=== PATIENT | female | born 1975 | race Caucasian/White ===

== ENCOUNTER 2017-01-29 17:19 | Emergency (ER) | payer OTHER ==
[2017-01-29] MEDS ORDERED: NS 0.9% 1000 ML* 1,000 ML IV ONE (18:35)
[2017-01-29] MEDS ORDERED: diPHENhydraMINE IV* 50 MG/ML 1 ml VIAL (BENADRYL) IV ONE (18:43)
[2017-01-29] MEDS ORDERED: PROCHLORPERAZINE INJ 5 MG/ML 2 ML VIAL IV ONE (18:44)
[2017-01-29 18:55] LABS: Hematocrit 32 % (35-47); Hemoglobin 9.6 g/dl (12.0-16.0); Mean Corpuscular HGB Conc 30 g/dl (31-36); Mean Corpuscular Hemoglobin 22 pg (27-31); Mean Platelet Volume 8 um3 (7.4-10.4); Red Blood Count 4.34 10^6/ul (4.0-5.4); Red Cell Distribution Width 18 % (10.5-15); White Blood Count 8.9 10^3/ul (3.5-10.8)
[2017-01-29 19:00] LABS: Comments Flag Yes; Mean Corpuscular Volume 73 fL (80-97)
[2017-01-29 19:13] LABS: ALT 14 U/L (7-52); AST 14 U/L (13-39); Albumin 3.6 g/dL (3.2-5.2); Alkaline Phosphatase 158 U/L (34-104); Anion Gap 5 mmol/L (2-11); BUN/Creatinine Ratio 13.7 (8-20); Blood Urea Nitrogen 13 mg/dL (6-24); CO2 Carbon Dioxide 25 mmol/L (22-32); Calcium 8.8 mg/dL (8.6-10.3); Chloride 108 mmol/L (101-111); EGFR African American 83.4 (>60); EGFR Non-African American 64.8 (>60); Globulin 3.8 g/dL (2-4); Glucose 140 mg/dL (70-100); Potassium 4.1 mmol/L (3.5-5.0); Sodium 138 mmol/L (133-145); Total Protein 7.4 g/dL (6.4-8.9)
--- NOTE | 2017-01-29 20:03 | ED ---
Headache - HPI Summary HPI Summary: 41F presents with migraine since Tuesday. She used imitrex but it hasn't been working. Her neurologist is Dr Mock. She is very limited in medication and potential use as is allergic to many medication and is unable to take NSAIDS due to gastric bypass. She states there is nothing different about this migraine. She states it started behind her eyes and moved to the back of her head. She admits to photophobia. she states she is also on Keflex currently and is being treated for sinusitis. - History Of Current Complaint Chief Complaint: EDHeadache Stated Complaint: HEADACHE Time Seen by Provider: 01/29/17 18:35 - Allergies/Home Medications Allergies/Adverse Reactions: Allergies Allergy/AdvReac Type Severity Reaction Status Date / Time Adhesive Tape Allergy SKIN TEARS Verified 12/08/15 12:13 & RASH Hydromorphone [From Dilaudid] Allergy Anaphylatic Verified 12/08/15 12:13 Shock Lisinopril Allergy SENSITIVITY Verified 12/08/15 12:13 - PRESISTANT COUGHING Metoclopramide [From Reglan] Allergy Anxiety Verified 12/08/15 12:13 Morphine Allergy Pain Verified 12/08/15 12:13 PMH/Surg Hx/FS Hx/Imm Hx Endocrine/Hematology History: Reports: Hx Diabetes Cardiovascular History: Reports: Hx Hypertension - takes lisinopril Denies: Hx Congestive Heart Failure, Hx Pacemaker/ICD Respiratory History: Denies: Hx Asthma History: Reports: Hx Renal Disease - chronic renal insuffiency Sensory History: Denies: Hx Hearing Aid Psychiatric History: Reports: Hx Panic Disorder - treated with medication for anxiety - Cancer History Hx Chemotherapy: No Hx Radiation Therapy: No - Surgical History Surgery Procedure, Year, and Place: 1997 D&C, 1997 lanced bartholin gland cyst, 2007 gastric bypass surgery, 2008 cholecystectomy, 2013 R hernias repair, 2013 angiogram, no blockages found. Infectious Disease History: No Infectious Disease History: Denies: Traveled Outside the [place] in Last 30 Days - Family History Known Family History: Positive: Hypertension - Social History Alcohol Use: Rare Substance Use Type: Reports: None Smoking Status (MU): Former Smoker Review of Systems Negative: Fever Positive: Photophobia Negative: Chest Pain Negative: Shortness Of Breath Positive: Headache All Other Systems Reviewed And Are Negative: Yes Physical Exam Triage Information Reviewed: Yes Vital Signs On Initial Exam: Initial Vitals Temp Pulse Resp BP Pulse Ox 97.7 F 80 16 147/89 99 01/29/17 17:22 01/29/17 17:22 01/29/17 17:22 01/29/17 17:22 01/29/17 17:22 Vital Signs Reviewed: Yes Appearance: Positive: Pain Distress Skin: Positive: Warm, Dry Head/Face: Positive: Normal Head/Face Inspection Eyes: Positive: Normal, EOMI, JUSTA, Conjunctiva Clear ENT: Positive: Normal ENT inspection, Pharynx normal, TMs normal Respiratory/Lung Sounds: Positive: Clear to Auscultation, Breath Sounds Present Cardiovascular: Positive: Normal, RRR Neurological: Positive: Sensory/Motor Intact, Alert, Oriented to Person Place, Time, CN Intact II-III - [place] Coma Scale Coma Scale Total: 15 Diagnostics - Vital Signs Vital Signs Temp Pulse Resp BP Pulse Ox 01/29/17 19:30 66 119/67 97 01/29/17 19:00 73 134/79 99 01/29/17 18:30 66 135/76 97 01/29/17 18:00 65 121/73 98 01/29/17 17:38 74 98 01/29/17 17:35 149/82 01/29/17 17:22 97.7 F 80 16 147/89 99 - Laboratory Lab Results: Lab Results 01/29/17 01/29/17 Range/Units 18:49 18:49 WBC 8.9 (3.5-10.8) 10^3/ul RBC 4.34 (4.0-5.4) 10^6/ul Hgb 9.6 L (12.0-16.0) g/dl Hct 32 L (35-47) % MCV 73 L (80-97) fL MCH 22 L (27-31) pg MCHC 30 L (31-36) g/dl RDW 18 H (10.5-15) % Plt Count 270 (150-450) 10^3/ul MPV 8 (7.4-10.4) um3 Neut % (Auto) 61.1 (38-83) % Lymph % (Auto) 29.3 (25-47) % Warren % (Auto) 7.9 (1-9) % Eos % (Auto) 1.2 (0-6) % Baso % (Auto) 0.5 (0-2) % Absolute Neuts (auto) 5.4 (1.5-7.7) 10^3/ul Absolute Lymphs (auto) 2.6 (1.0-4.8) 10^3/ul Absolute Monos (auto) 0.7 (0-0.8) 10^3/ul Absolute Eos (auto) 0.1 (0-0.6) 10^3/ul Absolute Basos (auto) 0 (0-0.2) 10^3/ul Absolute Nucleated RBC 0 10^3/ul Nucleated RBC % 0 Sodium 138 (133-145) mmol/L Potassium 4.1 (3.5-5.0) mmol/L Chloride 108 (101-111) mmol/L Carbon Dioxide 25 (22-32) mmol/L Anion Gap 5 (2-11) mmol/L BUN 13 (6-24) mg/dL Creatinine 0.95 (0.51-0.95) mg/dL Est GFR ( Amer) 83.4 (>60) Est GFR (Non-Af Amer) 64.8 (>60) BUN/Creatinine Ratio 13.7 (8-20) Glucose 140 H (70-100) mg/dL Calcium 8.8 (8.6-10.3) mg/dL Total Bilirubin 0.20 (0.2-1.0) mg/dL AST 14 (13-39) U/L ALT 14 (7-52) U/L Alkaline Phosphatase 158 H (34-104) U/L Total Protein 7.4 (6.4-8.9) g/dL Albumin 3.6 (3.2-5.2) g/dL Globulin 3.8 (2-4) g/dL Albumin/Globulin Ratio 0.9 L (1-3) Beta HCG, Quant < 0.60 mIU/mL Result Diagrams: 01/29/17 18:49 01/29/17 18:49 Lab Statement: Any lab studies that have been ordered have been reviewed, and results considered in the medical decision making process. Re-Evaluation - Re-Evaluation First Eval Re-Evaluation Time: 20:03 Change: Improved Comment: patient states headache is mild, ready to go home Headache Course/Dx - Course Course Of Treatment: 41F presents with typical migraine, normal migraine mediaction is not working for here. is limited due to allergies and h/o bypass about what can take. normal neuro exam. gave bendaryl and compazine and iv fluids patient migraine resolved. told patient to follow up with dr mock. patient understands and agrees with plan - Diagnoses Differential Diagnosis/HQI/PQRI: Migraine, Sinus Headache, Tension Headache Provider Diagnoses: Migraine Discharge - Discharge Plan Condition: Guarded Disposition: HOME Patient Education Materials: Migraine Headache (ED) Referrals: Non Staff,Doctor [Primary Care Provider] - Jean Mock MD [Medical Doctor] - Additional Instructions: Drink fluids Try to avoid triggers Follow up with neurology Return to ED if develop any new or worsening symptoms
[2017-01-29 20:37] VITALS: BP 159/88
== END 2017-01-29 20:30 | disposition home or self-care (01) ==
LOC: ED 17:19
DX: G43.909 Migraine, unspecified, not intractable, without status migrainosus (principal); R51 Headache; H53.149 Visual discomfort, unspecified; Z87.891 Personal history of nicotine dependence
CPT/HCPCS: 36415; 80053; 84702; 85025; 96374; 96375; 99283; J0780; J1200

== ENCOUNTER 2017-05-02 15:53 | Emergency (ER) | payer OTHER ==
[2017-05-02] MEDS ORDERED: Ondansetron INJ* 2 MG/ML VIAL IV ONE (17:36)
[2017-05-02] MEDS ORDERED: Ketorolac INJ* 30 MG/ML 1 ML VIAL IV ONE (17:36)
[2017-05-02] MEDS ORDERED: diPHENhydraMINE IV* 50 MG/ML 1 ml VIAL (BENADRYL) IV ONE (17:36)
[2017-05-02] MEDS: NS 0.9% 1000 ML* 2,000 ML IV ONE (17:52)
--- NOTE | 2017-05-02 19:23 | ED ---
Perla Rodriguez Alok, scribed for Savanah Fernandez MD on 05/02/17 at 1727 . Headache - HPI Summary HPI Summary: 41F presents to the ED with a constant migraine HERNANDEZ for the past 2 weeks. Pt states that her HERNANDEZ is diffuse throughout her head and is accompanied by neck stiffness. Pt also notes nausea with vomiting earlier in the week. PMHx includes DM, PTSD, and anxiety. Pt also has h/o migraines and states that her current migraine feels typical. Pt is a former tobacco smoker and drinks ETOH occasionally. - History Of Current Complaint Chief Complaint: EDHeadache Stated Complaint: MIGRAINE/STIFF NECK Time Seen by Provider: 05/02/17 16:53 Hx Obtained From: Patient Onset/Duration: Started weeks ago, Still Present Initially Headache Was: Moderate Currently Pain Is: Moderate Timing: Constant Character: Migraine Location of Headache: Diffuse Radiates to: Neck Aggravating Factor: Nothing Allevating Factors: Nothing Associated Signs And Symptoms: Nausea, Vomiting, Neck Stiffness - Allergies/Home Medications Allergies/Adverse Reactions: Allergies Allergy/AdvReac Type Severity Reaction Status Date / Time Adhesive Tape Allergy SKIN TEARS Verified 05/02/17 16:54 & RASH Hydromorphone [From Dilaudid] Allergy Anaphylatic Verified 05/02/17 16:54 Shock Lisinopril Allergy SENSITIVITY Verified 05/02/17 16:54 - PRESISTANT COUGHING Loperamide [From Imodium] Allergy Unknown Verified 05/02/17 16:54 Reaction Details Metoclopramide [From Reglan] Allergy Anxiety Verified 05/02/17 16:54 Morphine Allergy Pain Verified 05/02/17 16:54 PMH/Surg Hx/FS Hx/Imm Hx Endocrine/Hematology History: Reports: Hx Diabetes Cardiovascular History: Reports: Hx Hypertension - takes lisinopril Denies: Hx Congestive Heart Failure, Hx Pacemaker/ICD Respiratory History: Denies: Hx Asthma History: Reports: Hx Renal Disease - chronic renal insuffiency Sensory History: Denies: Hx Hearing Aid Psychiatric History: Reports: Hx Panic Disorder - treated with medication for anxiety - Cancer History Hx Chemotherapy: No Hx Radiation Therapy: No - Surgical History Surgery Procedure, Year, and Place: 1997 D&C, 1997 lanced bartholin gland cyst, 2007 gastric bypass surgery, 2008 cholecystectomy, 2012 R hernias repair, 2012 angiogram, no blockages found. Infectious Disease History: No Infectious Disease History: Denies: Traveled Outside the [place] in Last 30 Days - Family History Known Family History: Positive: Hypertension - Social History Occupation: Unemployed Lives: Alone Alcohol Use: Rare Substance Use Type: Reports: None Smoking Status (MU): Former Smoker Review of Systems Negative: Fever Positive: Vomiting, Nausea Positive: Other - neck pain Positive: Headache All Other Systems Reviewed And Are Negative: Yes Physical Exam Triage Information Reviewed: Yes Vital Signs On Initial Exam: Initial Vitals Temp Pulse Resp BP 98.6 F 80 18 139/82 05/02/17 15:56 05/02/17 15:56 05/02/17 15:56 05/02/17 15:56 Vital Signs Reviewed: Yes Appearance: Positive: Well-Appearing, No Pain Distress Skin: Positive: Warm, Skin Color Reflects Adequate Perfusion, Dry Eyes: Positive: EOMI, JUSTA ENT: Positive: Pharynx normal, TMs normal Neck: Positive: Supple, Nontender Respiratory/Lung Sounds: Positive: Clear to Auscultation, Breath Sounds Present. Negative: Rales, Rhonchi, Wheezes Cardiovascular: Positive: RRR, Other - no gallop. Negative: Murmur, Rub Abdomen Description: Positive: Nontender, Soft, Other: - no rebound. Negative: Distended, Guarding Bowel Sounds: Positive: Present Musculoskeletal: Positive: Strength/ROM Intact. Negative: Edema Left, Edema Right Neurological: Positive: Sensory/Motor Intact, Alert, Oriented to Person Place, Time, CN Intact II-III Psychiatric: Positive: Affect/Mood Appropriate - [place] Coma Scale Coma Scale Total: 15 Diagnostics - Vital Signs Vital Signs Temp Pulse Resp BP Pulse Ox 05/02/17 17:10 69 99 05/02/17 16:55 98.6 F 74 16 126/82 99 05/02/17 15:56 98.6 F 80 18 139/82 - Laboratory Lab Statement: Any lab studies that have been ordered have been reviewed, and results considered in the medical decision making process. Headache Course/Dx - Course Course Of Treatment: pt feeling much better ok to go home - Diagnoses Provider Diagnoses: Migraine Discharge - Discharge Plan Condition: Stable Disposition: HOME Patient Education Materials: Migraine Headache (ED) Referrals: Dedrick KAYE,Luke Odell [Primary Care Provider] - The documentation as recorded by the Perla neri Alok accurately reflects the service I personally performed and the decisions made by me, Savanah Fernandez MD.
[2017-05-02 19:43] VITALS: BP 118/78
== END 2017-05-02 19:42 | disposition home or self-care (01) ==
LOC: ED 15:53
DX: G43.909 Migraine, unspecified, not intractable, without status migrainosus (principal); E11.9 Type 2 diabetes mellitus without complications; I10 Essential (primary) hypertension; F41.0 Panic disorder [episodic paroxysmal anxiety]; Z87.891 Personal history of nicotine dependence
CPT/HCPCS: 96360; 96374; 96375; 99283; J1200; J1885; J2405

== ENCOUNTER 2017-08-26 22:02 | Observation (INO) | payer OTHER ==
[2017-08-26] MEDS ORDERED: Aspirin Low Dose CHEW TAB* 81 MG PO ONE (22:41)
[2017-08-26 23:39] LABS: Hematocrit 29 % (35-47); Hemoglobin 9.1 g/dl (12.0-16.0); Mean Corpuscular HGB Conc 31 g/dl (31-36); Mean Corpuscular Hemoglobin 24 pg (27-31); Mean Corpuscular Volume 75 fL (80-97); Mean Platelet Volume 9 um3 (7.4-10.4); Red Blood Count 3.88 10^6/ul (4.0-5.4); Red Cell Distribution Width 17 % (10.5-15); White Blood Count 9.3 10^3/ul (3.5-10.8)
[2017-08-26 23:49] LABS: ALT 10 U/L (7-52); AST 10 U/L (13-39); Albumin 3.5 g/dL (3.2-5.2); Alkaline Phosphatase 118 U/L (34-104); Anion Gap 5 mmol/L (2-11); BUN/Creatinine Ratio 17.6 (8-20); Blood Urea Nitrogen 16 mg/dL (6-24); CO2 Carbon Dioxide 21 mmol/L (22-32); Calcium 8.8 mg/dL (8.6-10.3); Chloride 109 mmol/L (101-111); EGFR African American 87.6 (>60); EGFR Non-African American 68.1 (>60); Globulin 3.5 g/dL (2-4); Glucose 288 mg/dL (70-100); Magnesium 1.9 mg/dL (1.9-2.7); Potassium 3.9 mmol/L (3.5-5.0); Sodium 135 mmol/L (133-145)
[2017-08-27] MEDS ORDERED: CMCS Melatonin (NF) 3 MG TAB PO PRN (01:32)
[2017-08-27] MEDS ORDERED: Albuterol 2.5 MG/3 ML NEB.SOL* (0.083%) INH PRN (01:32)
[2017-08-27] MEDS ORDERED: Ondansetron INJ* 2 MG/ML VIAL IV PRN (01:33)
[2017-08-27] MEDS ORDERED: Al Hydrox/Mg Hydrox/Simet LIQ* 30 ML UDC PO ONE (01:35)
[2017-08-27] MEDS ORDERED: Lidocaine 2% VISCOUS* 15 ML UDC PO ONE (01:35)
[2017-08-27] MEDS ORDERED: Ibuprofen TAB* 400 MG PO PRN (01:35)
--- NOTE | 2017-08-27 03:16 | ED ---
Brigette Rodriguez Abhishek, scribed for Reed Garg on 08/26/17 at 2342 . HPI Chest Pain - HPI Summary HPI Summary: This patient is a 41 year old F presenting to [facility] with a chief complaint of chest pain since 829. The CC is described as located on the center of the chest and radiating onto the left arm. The patient rates the pain 9/10 in severity. Symptoms aggravated by nothing. Symptoms alleviated by nothing. Patient reports nausea. Patient denies vomiting, adb pain, and SOB. PMHx includes Hypothyroidism, low Hb, DM, and hernia. - History of Current Complaint Chief Complaint: EDChestPainROMI Time Seen by Provider: 08/26/17 22:33 Hx Obtained From: Patient Onset/Duration: Started Hours Ago - since 829 Timing: Constant Initial Severity: Severe Current Severity: Severe Pain Intensity: 9 Pain Scale Used: 0-10 Numeric Chest Pain Location: Discrete at: - center of the chest Chest Pain Radiates: Yes Chest Pain Radiates To:: Arm - left arm Aggravating Factor(s): Nothing Alleviating Factor(s): Nothing Associated Signs and Symptoms: Positive: Nausea. Negative: Shortness of Breath , Abdominal Pain, Vomiting - Allergy/Home Medications Allergies/Adverse Reactions: Allergies Allergy/AdvReac Type Severity Reaction Status Date / Time Hydromorphone [From Dilaudid] Allergy Severe Anaphylatic Verified 08/27/17 01:34 Shock Adhesive Tape Allergy Mild SKIN TEARS Verified 08/27/17 01:34 & RASH Loperamide [From Imodium] Allergy Unknown Verified 08/26/17 23:05 Reaction Details Lisinopril AdvReac Mild SENSITIVITY Verified 08/27/17 01:34 - PRESISTANT COUGHING Metoclopramide [From Reglan] AdvReac Mild Anxiety Verified 08/27/17 01:34 Morphine AdvReac Pain Verified 08/27/17 01:34 Home Medications: Home Medications Unobtainable [Unobtainable] 08/27/17 [History Confirmed 08/27/17] PMH/Surg Hx/FS Hx/Imm Hx Endocrine/Hematology History: Reports: Hx Diabetes, Hx Thyroid Disease - hypothyrodism Cardiovascular History: Reports: Hx Hypertension - takes lisinopril, Other Cardiovascular Problems/Disorders - low Hb Denies: Hx Congestive Heart Failure, Hx Pacemaker/ICD Respiratory History: Denies: Hx Asthma GI History: Reports: Other GI Disorders - Hernia History: Reports: Hx Renal Disease - chronic renal insuffiency Sensory History: Denies: Hx Hearing Aid Psychiatric History: Reports: Hx Panic Disorder - treated with medication for anxiety - Cancer History Hx Chemotherapy: No Hx Radiation Therapy: No - Surgical History Surgery Procedure, Year, and Place: 1997 D&C, 1997 lanced bartholin gland cyst, 2007 gastric bypass surgery, 2008 cholecystectomy, 2012 R hernias repair, 2012 angiogram, no blockages found. Infectious Disease History: No Infectious Disease History: Denies: Traveled Outside the [place] in Last 30 Days - Family History Known Family History: Positive: Hypertension, Other - [place] - Social History Alcohol Use: Rare Substance Use Type: Reports: None Smoking Status (MU): Former Smoker Review of Systems Constitutional: Negative Eyes: Negative ENT: Negative Positive: Chest Pain Negative: Shortness Of Breath Positive: Nausea. Negative: Abdominal Pain, Vomiting Genitourinary: Negative Positive: Other - Chest pain radiating onto the left arm Skin: Negative Neurological: Negative Psychological: Normal All Other Systems Reviewed And Are Negative: Yes Physical Exam - Summary Physical Exam Summary: Appearance: Well appearing, no pain distress Skin: warm, dry, reflects adequate perfusion Head/face: normal Eyes: EOMI, JUSTA ENT: normal Neck: supple, nontender Respiratory: CTA, breath sounds present Cardiovascular: RRR, pulses symmetrical Abdomen: nontender, soft Bowel: present Musculoskeletal: normal, strength/ROM intact Neuro: normal, sensory motor intact, A&Ox3 General: Obese Triage Information Reviewed: Yes Vital Signs On Initial Exam: Initial Vitals Temp Pulse Resp BP Pulse Ox 97.4 F 94 20 143/98 99 08/26/17 22:09 08/26/17 22:09 08/26/17 22:09 08/26/17 22:09 08/26/17 22:09 Vital Signs Reviewed: Yes - [place] Coma Scale Coma Scale Total: 15 Diagnostics - Vital Signs Vital Signs Temp Pulse Resp BP Pulse Ox 08/26/17 22:09 97.4 F 94 20 143/98 99 - Laboratory Lab Results: Lab Results 08/26/17 Range/Units 22:56 B-Natriuretic Peptide 20 ( - 100) pg/mL Result Diagrams: 08/26/17 22:56 08/26/17 22:56 Lab Statement: Any lab studies that have been ordered have been reviewed, and results considered in the medical decision making process. - Radiology Chest X-ray Radiology Interpretation Completed By: Radiologist - CXR is negative. ED physician has reviewed this radiology report and agrees. - EKG 8940 EKG Interpretation: Normal sinus rhythm, no aucte changes Chest Pain Course/Dx - Course Course Of Treatment: This patient is a 41 year old F presenting to [facility] with a chief complaint of chest pain since 829. The CC is described as located on the center of the chest and radiating onto the left arm. Patient reports nausea. Patient denies vomiting, adb pain, and SOB. An EKG reveals normal sinus rhythm, no acute changes. CXR is negative. We discussed patient care with Dr. Mcgee and he recommended admitting the pt as an inpatient. Pt will be Dx with CP r/o IL and with Hx of DM. Pt is agreeable with this plan. - Chest Pain Differential Diagnosis/HQI/PQRI: Acute [place], ACS, Angina, CHF, GI Disease, Lower Respiratory Infection - Diagnoses Provider Diagnoses: Chest pain, rule out acute myocardial infarction, Diabetes - Provider Notifications Discussed Care Of Patient With: Rustam Mcgee Instructed by Provider To: Admit As Inpatient Discharge - Discharge Plan Condition: Stable Disposition: ADMITTED TO [facility] The documentation as recorded by the Brigette neri Abhishek accurately reflects the service I personally performed and the decisions made by Forest doss Emmanuel.
[2017-08-27] MEDS: Acetaminophen TAB* 325 MG PO PRN (04:44)
[2017-08-27] MEDS ORDERED: Omeprazole CAP* 20 MG PO SCH ×2 (06:00→11:00)
[2017-08-27] MEDS ORDERED: Albuterol HFA INHALER* 8 gm MDI INH PRN (06:11)
--- NOTE | 2017-08-27 06:32 | HP ---
H&P (Free Text) History and Physical: PCP: Aiyana Tse MD Date/Time: 08/27/2017 0130 CC: chest pain HPI: Ms Johnson is a 41YO morbidly obese female who went to bed early last night to awaken around 2029 due to stabbing continuous substernal chest pain radiating to the L arm. She immediately informs me that "July is always a stressful month. My dad of a massive heart attack in July five years ago." She reports mild nausea & light-headedness, but no emesis, SOB, palpitations, sweats, cough, congestion, F/C, or other issues. She took OTC Tums without relief and decided to present for evaluation. A GI cocktail given in ED did not seem to help. PMedHx asthma DM2, insulin requiring hypothyroidism anemia PTSD panic disorder anxiety HTN migraines Ambulatory Orders Acetaminophen [Tylenol 8 Hour Arthritis] 650 mg PO Q4H PRN 08/27/17 Albuterol HFA INHALER* [Ventolin HFA Inhaler*] 2 puff INH Q4H PRN 08/27/17 Artificial Tear Solution [Genteal Tears Moderate 0.1-0.3 %] 1 drop TOPICAL BID PRN 08/27/17 Ascorbic Acid TAB* [Vitamin C TAB*] 500 mg PO DAILY 08/27/17 BuPROPion XL* [Bupropion XL*] 300 mg PO DAILY 08/27/17 Cetirizine* [ZyrTEC 10 MG TAB*] 10 mg PO DAILY 08/27/17 Cholecalciferol [Vitamin D3] 2,000 unit PO DAILY 08/27/[address] TAB(*) [Depakote DR TAB(*)] 125 mg PO BID 08/27/17 Ferrous Sulfate [Iron (Ferrous Sulfate)] 150 mg PO DAILY 08/27/17 Fluticasone HFA 110 mcg(NF) [Flovent HFA 110 mcg(NF)] 2 puff INH BID 08/27/17 Folic Acid TAB* [Folvite TAB*] 1 mg PO DAILY 08/27/17 Insulin GLARGINE(*) [Lantus(*)] 30 units SUBCON BID 08/27/17 Insulin REGULAR(*) 0 units SUBCUT ACHS 08/27/17 Levothyroxine TAB* [Synthroid TAB*] 25 mcg PO 0800 08/27/17 Lurasidone(*) [Latuda] 80 mg PO QPM 08/27/17 Meclizine TAB* [Antivert 12.5 TAB*] 25 mg PO TID PRN 08/27/17 Mirtazapine TAB* [Remeron TAB*] 30 mg PO BEDTIME 08/27/17 Montelukast Sodium TAB* [Singulair TAB*] 10 mg PO DAILY 08/27/17 Multiple Vitamins W/ Minerals [Multiple Vitamin/Minerals] 2 tab PO DAILY Norethindrone (NF) [Shweta (NF)] 0.35 mg PO BEDTIME 08/27/17 SUMAtriptan TAB* [Imitrex TAB*] 50 mg PO SEE INSTRUCTIONS 08/27/17 Topiramate [Topamax 100 mg tab] 100 mg PO SEE INSTRUCTIONS PRN 08/27/17 ValACYclovir (*) [Valtrex 500 mg (*)] 500 mg PO BID PRN 08/27/17 Vitamin B Complex CAP* [B Complex CAP*] 1 cap PO DAILY 08/27/17 clonazePAM TAB(*) [Klonopin TAB(*)] 1 mg PO BID PRN 08/27/17 diPHENhydraMINE PO* [Benadryl PO 50 MG CAP*] 50 mg PO BEDTIME PRN 08/27/17 Allergies Hydromorphone [From Dilaudid] Allergy (Severe, Verified 08/27/17 01:34) Anaphylatic Shock Adhesive Tape Allergy (Mild, Verified 08/27/17 01:34) SKIN TEARS & RASH Loperamide [From Imodium] Allergy (Verified 08/26/17 23:05) Unknown Reaction Details Lisinopril Adverse Reaction (Mild, Verified 08/27/17 01:34) SENSITIVITY - PRESISTANT COUGHING Metoclopramide [From Reglan] Adverse Reaction (Mild, Verified 08/27/17 01:34) Anxiety Morphine Adverse Reaction (Verified 08/27/17 01:34) Pain PSurgHx hiatal hernia repair gastric bypass cholecystectomy D&C SocHx: quit smoking in 2007, rare alcohol, denies recreational drugs; single, lives alone; unemployed, has filed for disability; full code status FamHx: Mother: alive at 67 with hypothyroidism; Father: passed at 59 of CAD/[place]; Sister: alive with Raynaud's disease ROS: as above, otherwise reviewed and all were negative vitals: Vital Signs Temp 36.8 C 08/27/17 01:50 Pulse 89 08/27/17 01:50 Resp 18 08/27/17 01:50 BP 149/95 08/27/17 01:50 Pulse Ox 100 08/27/17 01:50 Intake & Output 08/26/17 08/26/17 08/27/17 11:59 23:59 11:59 Intake Total 440 Output Total 0 Balance 440 Weight 122.47 kg 121.381 kg Intake: Oral 440 Output: Urine 0 Other: # Bowel Movements 0 Constitutional: NAD, normally developed, morbidly obese white female HEENM: atraumatic; sclera/conjunctiva: non-icteric/clear; hearing: clinically intact; oropharynx: clear, mucosa moist Neck: soft tissue: non-tender; thyroid: normal Pulmonary: clear to auscultation bilaterally, good aeration, no accessory muscle use CV: RR/RR, normal S1S2, no carotid bruit, no jugular venous distention, 1+ B DP/ PT, no edema Abdominal: soft, non-distended, non-tender, no rebound/guarding/rigidity, normoactive bowel sounds, no hepatosplenomegaly or masses, no costovertebral angle tenderness Musculoskeletal: general: grossly intact, no palpable tenderness Integumental: normal appearance and texture of exposed skin Psychiatric orientation: AA&O to PPS affect: flat mood: cooperative eye contact: fair to poor content: reliable responses: mildly slowed insight: fair to poor Testing: Lab Results 08/26/17 08/26/17 08/26/17 Range/Units 22:56 22:56 22:56 WBC 9.3 (3.5-10.8) 10^3/ul RBC 3.88 L (4.0-5.4) 10^6/ul Hgb 9.1 L (12.0-16.0) g/dl Hct 29 L (35-47) % MCV 75 L (80-97) fL MCH 24 L (27-31) pg MCHC 31 (31-36) g/dl RDW 17 H (10.5-15) % Plt Count 237 (150-450) 10^3/ul MPV 9 (7.4-10.4) um3 Neut % (Auto) 58.3 (38-83) % Lymph % (Auto) 30.9 (25-47) % [place] % (Auto) 8.8 (1-9) % Eos % (Auto) 1.5 (0-6) % Baso % (Auto) 0.5 (0-2) % Absolute Neuts (auto) 5.4 (1.5-7.7) 10^3/ul Absolute Lymphs (auto) 2.9 (1.0-4.8) 10^3/ul Absolute Monos (auto) 0.8 (0-0.8) 10^3/ul Absolute Eos (auto) 0.1 (0-0.6) 10^3/ul Absolute Basos (auto) 0 (0-0.2) 10^3/ul Absolute Nucleated RBC 0 10^3/ul Nucleated RBC % 0 INR (Anticoag Therapy) (0.89-1.11) APTT (26.0-36.3) seconds D-Dimer, Quantitative (Less Than 230) ng/mL Sodium 135 (133-145) mmol/L Potassium 3.9 (3.5-5.0) mmol/L Chloride 109 (101-111) mmol/L Carbon Dioxide 21 L (22-32) mmol/L Anion Gap 5 (2-11) mmol/L BUN 16 (6-24) mg/dL Creatinine 0.91 (0.51-0.95) mg/dL Est GFR ( Amer) 87.6 (>60) Est GFR (Non-Af Amer) 68.1 (>60) BUN/Creatinine Ratio 17.6 (8-20) Glucose 288 H (70-100) mg/dL Lactic Acid (0.5-2.0) mmol/L Calcium 8.8 (8.6-10.3) mg/dL Magnesium 1.9 (1.9-2.7) mg/dL Total Bilirubin 0.20 (0.2-1.0) mg/dL AST 10 L (13-39) U/L ALT 10 (7-52) U/L Alkaline Phosphatase 118 H (34-104) U/L Troponin I 0.00 (<0.04) ng/mL B-Natriuretic Peptide 20 ( - 100) pg/mL Total Protein 7.0 (6.4-8.9) g/dL Albumin 3.5 (3.2-5.2) g/dL Globulin 3.5 (2-4) g/dL Albumin/Globulin Ratio 1.0 (1-3) 08/26/17 08/26/17 08/27/17 Range/Units 22:56 22:56 05:02 WBC (3.5-10.8) 10^3/ul RBC (4.0-5.4) 10^6/ul Hgb (12.0-16.0) g/dl Hct (35-47) % MCV (80-97) fL MCH (27-31) pg MCHC (31-36) g/dl RDW (10.5-15) % Plt Count (150-450) 10^3/ul MPV (7.4-10.4) um3 Neut % (Auto) (38-83) % Lymph % (Auto) (25-47) % [place] % (Auto) (1-9) % Eos % (Auto) (0-6) % Baso % (Auto) (0-2) % Absolute Neuts (auto) (1.5-7.7) 10^3/ul Absolute Lymphs (auto) (1.0-4.8) 10^3/ul Absolute Monos (auto) (0-0.8) 10^3/ul Absolute Eos (auto) (0-0.6) 10^3/ul Absolute Basos (auto) (0-0.2) 10^3/ul Absolute Nucleated RBC 10^3/ul Nucleated RBC % INR (Anticoag Therapy) 0.86 L (0.89-1.11) APTT 27.0 (26.0-36.3) seconds D-Dimer, Quantitative 222 (Less Than 230) ng/mL Sodium (133-145) mmol/L Potassium (3.5-5.0) mmol/L Chloride (101-111) mmol/L Carbon Dioxide (22-32) mmol/L Anion Gap (2-11) mmol/L BUN (6-24) mg/dL Creatinine (0.51-0.95) mg/dL Est GFR ( Amer) (>60) Est GFR (Non-Af Amer) (>60) BUN/Creatinine Ratio (8-20) Glucose (70-100) mg/dL Lactic Acid 1.6 (0.5-2.0) mmol/L Calcium (8.6-10.3) mg/dL Magnesium (1.9-2.7) mg/dL Total Bilirubin (0.2-1.0) mg/dL AST (13-39) U/L ALT (7-52) U/L Alkaline Phosphatase (34-104) U/L Troponin I 0.00 (<0.04) ng/mL B-Natriuretic Peptide ( - 100) pg/mL Total Protein (6.4-8.9) g/dL Albumin (3.2-5.2) g/dL Globulin (2-4) g/dL Albumin/Globulin Ratio (1-3) ECG, personally reviewed: NSR rate 84, no ischemia, diffuse T-wave flattening & low voltage 2nd body habitus CXR, personally reviewed: no acute process, obscured R cardiac border stable compared to 2015 CTA chest Impression: 41F HX morbid obesity, DM2, & HTN presents with atypical chest pain for r/o ACS DIAGNOSIS & PLAN Primary atypical chest pain r/o ACS : telemetry : trend troponin : aspirin : supplemental oxygen : recheck ECG in AM : consider cardiology consult pending above results : supportive care Secondary asthma : review meds once reconciled DM2 : insulin carb ratio diet : A1c 10.9 07/2017 : basal/bolus/correctional insulin hypothyroidism : review meds once reconciled anemia : continue outpatient monitoring w/ PCP PTSD : review meds once reconciled panic disorder : review meds once reconciled anxiety : review meds once reconciled HTN : review meds once reconciled migraines : review meds once reconciled Admission Rational: CDU observation for r/o ACS DVTp: heparin SQ Code Status: full
[2017-08-27] MEDS: Levothyroxine TAB* 25 MCG TAB PO SCH (06:51)
--- NOTE | 2017-08-27 07:33 | RAD ---
HISTORY: Chest pain COMPARISONS: CT chest dated December 05, 2014 VIEWS: 1: frontal portable view of the chest at ] FINDINGS: LINES AND TUBES: None. CARDIOMEDIASTINAL SILHOUETTE: Again noted is a prominent pericardial fat pad along the right cardiophrenic angle. This is stable from the previous CT examination. The cardiomediastinal silhouette is otherwise normal for portable technique. PLEURA: The costophrenic angles are sharp. No pleural abnormalities are noted. LUNG PARENCHYMA: The lungs are clear. ABDOMEN: The upper abdomen is clear. There is no subphrenic gas. BONES AND SOFT TISSUES: No bone or soft tissue abnormalities are noted. IMPRESSION: NO ACTIVE CARDIOPULMONARY DISEASE.
[2017-08-27] MEDS: clonazePAM TAB(*) 0.5 MG PO PRN ×2 (07:54→22:30)
[2017-08-27] MEDS ORDERED: Insulin GLARGINE(*) 1 UNITS UNIT SUBCUT SCH (09:00)
[2017-08-27] MEDS: FERROUS SULFATE PO SCH (09:13)
[2017-08-27] MEDS: BuPROPion XL* 300 MG TAB.XL PO SCH (09:17)
[2017-08-27] MEDS: Folic Acid TAB* 1 MG PO SCH (09:17)
[2017-08-27] MEDS: Docusate CAP* 100 MG PO SCH ×2 (09:17→20:33)
[2017-08-27] MEDS: Montelukast Sodium TAB* 10 MG PO SCH (09:17)
[2017-08-27] MEDS: Divalproex DR TAB(*) 125 MG PO SCH ×2 (09:17→20:33)
[2017-08-27] MEDS: Topiramate TAB(*) 100 MG PO SCH (09:17)
--- NOTE | 2017-08-27 10:47 | PN ---
Subjective Date of Service: 08/27/17 Interval History: Midsternal chest pain has recurred, about 08/09. No SOB, diaphoresis, nausea. Objective Active Medications: Acetaminophen (Tylenol Tab*) 650 mg PO Q6H PRN PRN Reason: FEVER/PAIN Last Admin: 08/27/17 04:44 Dose: 650 mg Albuterol (Ventolin 2.5 Mg/3 Ml Neb.Eleni*) 2.5 mg INH Q2H PRN PRN Reason: SOB/WHEEZING Albuterol (Ventolin Hfa Inhaler*) 2 puff INH Q4H PRN PRN Reason: SOB/WHEEZING Aspirin (Aspirin Ec Low Dose*) 81 mg PO DAILY [facility] Bupropion HCl (Bupropion Xl*) 300 mg PO DAILY [facility] Last Admin: 08/27/17 09:17 Dose: 300 mg Clonazepam (Klonopin Tab(*)) 1 mg PO BID PRN PRN Reason: ANXIETY Last Admin: 08/27/17 07:54 Dose: 1 mg Divalproex Sodium (Depakote Dr Tab(*)) 125 mg PO BID [facility] Last Admin: 08/27/17 09:17 Dose: Not Given Docusate Sodium (Colace Cap*) 200 mg PO BID [facility] Last Admin: 08/27/17 09:17 Dose: 200 mg Folic Acid (Folvite Tab*) 1 mg PO DAILY [facility] Last Admin: 08/27/17 09:17 Dose: 1 mg Heparin Sodium (Porcine) (Heparin Vial(*)) 5,000 units SUBCUT Q8HR [facility] Iron Sucrose 200 mg/ Sodium (Chloride) 110 mls @ 110 mls/hr IVPB ONCE ONE Stop: 08/27/17 11:30 Ibuprofen (Motrin Tab*) 400 mg PO Q6H PRN PRN Reason: PAIN Last Admin: 08/27/17 05:49 Dose: 400 mg Insulin Glargine (Lantus(*)) 30 units SUBCUT BID [facility] Last Admin: 08/27/17 09:16 Dose: 30 units Levothyroxine Sodium (Synthroid Tab*) 25 mcg PO 0600 [facility] Last Admin: 08/27/17 06:51 Dose: 25 mcg Lurasidone HCl (Latuda) 80 mg PO QPM [facility] Melatonin (Melatonin (Nf)) 3 mg PO BEDTIME PRN; Protocol PRN Reason: Sleep Mirtazapine (Remeron Tab*) 30 mg PO BEDTIME [facility] Montelukast Sodium (Singulair Tab*) 10 mg PO DAILY [facility] Last Admin: 08/27/17 09:17 Dose: 10 mg Non-Formulary Medication (Ferrous Sulfate [Iron (Ferrous Sulfate)]) 150 mg PO DAILY [facility] Last Admin: 08/27/17 09:13 Dose: Not Given Norethindrone (Shweta (Nf)) 0.35 mg PO BEDTIME [facility] Omeprazole (Prilosec Cap*) 20 mg PO DAILY@0600 [facility] Last Admin: 08/27/17 05:49 Dose: 20 mg Omeprazole (Prilosec Cap*) 20 mg PO BID [facility] Ondansetron HCl (Zofran Inj*) 4 mg IV Q6H PRN PRN Reason: NAUSEA Last Admin: 08/27/17 07:54 Dose: 4 mg Topiramate (Topamax(*)) 100 mg PO QAM [facility] Last Admin: 08/27/17 09:17 Dose: 100 mg Topiramate (Topamax(*)) 150 mg PO BEDTIME [facility] Vital Signs 08/27/17 08/27/17 08/27/17 01:50 07:39 07:54 Temperature 98.2 F 97.6 F Pulse Rate 89 76 Respiratory 18 16 16 Rate Blood Pressure 149/95 125/65 (mmHg) O2 Sat by Pulse 100 100 Oximetry Oxygen Devices in Use Now: None Appearance: Alert, partly up in bed. In fair spirits. Looks comfortable. Eyes: No Scleral Icterus Neck: NL Appearance and Movements; NL JVP, No Thyroid Enlargement, Masses Respiratory: Symmetrical Chest Expansion and Respiratory Effort, Clear to Auscultation, Clear to Percussion Cardiovascular: NL Sounds; No Murmurs; No JVD, RRR, No Edema, - - No sternal tenderness Abdominal: NL Sounds; No Tenderness; No Distention, No Hepatosplenomegaly, - Extremities: No Edema, No Clubbing, Cyanosis, - Skin: No Rash or Ulcers, No Nodules or Sclerosis, - Neurological: Alert and Oriented x 3, NL Sensation Result Diagrams: 08/26/17 22:56 08/26/17 22:56 Additional Lab and Data: Lab Results 08/26/17 Range/Units 22:56 B-Natriuretic Peptide 20 ( - 100) pg/mL Assess/Plan/Problems-Billing Assessment: - Patient Problems (1) Chest pain Current Visit: Yes Status: Acute Code(s): R07.9 - CHEST PAIN, UNSPECIFIED SNOMED Code(s): 64565603 Comment: Suspect GI cause. Start IV pantoprazole q 12 hr x 2 doses 08/26, then po omeprazole bid. (2) Diabetes Current Visit: Yes Status: Acute Code(s): E11.9 - TYPE 2 DIABETES MELLITUS WITHOUT COMPLICATIONS SNOMED Code(s): 04204502 Comment: Reduce Lantus to 20 U bid, glu 75 and likely eating less here. Lispro by SS. (3) Morbid obesity Current Visit: Yes Status: Acute Code(s): E66.01 - MORBID (SEVERE) OBESITY DUE TO EXCESS CALORIES SNOMED Code(s): 245242223 Comment: BMI 48.9 (4) Anemia Current Visit: Yes Status: Acute Code(s): D64.9 - ANEMIA, UNSPECIFIED SNOMED Code(s): 041004819 Comment: Likely iron deficiency. IV iron ordered, likely absorbs po poorly due to bariatric surgery. No menses since her surgery 8 yrs ago. Add on tests : iron, TIBC, ferritin 08/27. (5) Psychiatric diagnosis Current Visit: Yes Status: Acute Code(s): F99 - MENTAL DISORDER, NOT OTHERWISE SPECIFIED SNOMED Code(s): 36923288 Comment: Continue her home psychotropic meds.
[2017-08-27] MEDS ORDERED: Dextrose 50% Syringe 50 ML* 25 GM/50 ML SYRINGE IV PUSH PRN (10:50)
[2017-08-27] MEDS ORDERED: Pantoprazole IV* 40 MG IV SCH (11:00)
[2017-08-27 11:11] LABS: Iron 16 ug/dL (50-212); Total Iron Binding Capacity 461 mcg/dL (250-450); Transferrin 329 mg/dL (203-362)
[2017-08-27 11:31] LABS: Ferritin < 10.0 ng/mL (11-307)
[2017-08-27] MEDS: Insulin LISPRO* 1 UNITS UNIT SUBCUT SCH ×3 (12:44→21:33)
[2017-08-27] MEDS: Pantoprazole IV* 40 MG IV SCH (17:29)
[2017-08-27] MEDS ORDERED: Lurasidone(*) 80 MG TAB PO SCH (18:00)
[2017-08-27] MEDS ORDERED: Mirtazapine TAB* 15 MG PO SCH (21:00)
[2017-08-27] MEDS ORDERED: Norethindrone (NF) 0.35 MG TAB PO SCH (21:00)
[2017-08-27] MEDS ORDERED: Topiramate TAB(*) 100 MG PO SCH (21:00)
[2017-08-27] MEDS: Insulin GLARGINE(*) 1 UNITS UNIT SUBCUT SCH (21:32)
[2017-08-28] MEDS ORDERED: Heparin VIAL(*) 5000 UNITS/ML VIAL (FIVE THOUSAND) SUBCUT SCH (06:00)
[2017-08-28] MEDS: Levothyroxine TAB* 25 MCG TAB PO SCH (06:17)
[2017-08-28] MEDS: Pantoprazole IV* 40 MG IV SCH (06:23)
[2017-08-28] MEDS: FERROUS SULFATE PO SCH (08:17)
[2017-08-28] MEDS: Insulin LISPRO* 1 UNITS UNIT SUBCUT SCH (08:22)
[2017-08-28] MEDS: Insulin GLARGINE(*) 1 UNITS UNIT SUBCUT SCH (08:22)
[2017-08-28] MEDS: BuPROPion XL* 300 MG TAB.XL PO SCH (08:23)
[2017-08-28] MEDS: Folic Acid TAB* 1 MG PO SCH (08:23)
[2017-08-28] MEDS: Divalproex DR TAB(*) 125 MG PO SCH (08:23)
[2017-08-28] MEDS: Montelukast Sodium TAB* 10 MG PO SCH (08:23)
[2017-08-28] MEDS: Topiramate TAB(*) 100 MG PO SCH (08:23)
[2017-08-28] MEDS: Docusate CAP* 100 MG PO SCH (08:24)
[2017-08-28] MEDS ORDERED: Aspirin EC Low Dose* 81 MG TAB.EC PO SCH (09:00)
--- NOTE | 2017-08-28 09:13 | DCNOTE ---
Subjective Date of Service: 08/28/17 Interval History: No more pain. Slept poorly, states she has insomnia. She states the mirtazapine is for her insomnia but doesn't help. She states that her psychiatric nurse prescribed the mirtazapine. She states she is depressed. Ate breakfast well. Objective Active Medications: Acetaminophen (Tylenol Tab*) 650 mg PO Q6H PRN PRN Reason: FEVER/PAIN Last Admin: 08/27/17 04:44 Dose: 650 mg Albuterol (Ventolin 2.5 Mg/3 Ml Neb.Eleni*) 2.5 mg INH Q2H PRN PRN Reason: SOB/WHEEZING Albuterol (Ventolin Hfa Inhaler*) 2 puff INH Q4H PRN PRN Reason: SOB/WHEEZING Aspirin (Aspirin Ec Low Dose*) 81 mg PO DAILY [facility] Last Admin: 08/28/17 08:23 Dose: 81 mg Bupropion HCl (Bupropion Xl*) 300 mg PO DAILY [facility] Last Admin: 08/28/17 08:23 Dose: 300 mg Clonazepam (Klonopin Tab(*)) 1 mg PO BID PRN PRN Reason: ANXIETY Last Admin: 08/27/17 22:30 Dose: 1 mg Dextrose (D50w Syringe 50 Ml*) 12.5 gm IV PUSH .FOR FS < 60 - SS PRN PRN Reason: FS < 60 Divalproex Sodium (Depakote Dr Tab(*)) 125 mg PO BID [facility] Last Admin: 08/28/17 08:23 Dose: Not Given Docusate Sodium (Colace Cap*) 200 mg PO BID [facility] Last Admin: 08/28/17 08:24 Dose: Not Given Ferrous Sulfate (Ferrous Sulfate Tab*) 325 mg PO BID [facility] Folic Acid (Folvite Tab*) 1 mg PO DAILY [facility] Last Admin: 08/28/17 08:23 Dose: 1 mg Heparin Sodium (Porcine) (Heparin Vial(*)) 5,000 units SUBCUT Q8HR [facility] Last Admin: 08/28/17 06:17 Dose: 5,000 units Ibuprofen (Motrin Tab*) 400 mg PO Q6H PRN PRN Reason: PAIN Last Admin: 08/27/17 05:49 Dose: 400 mg Insulin Glargine (Lantus(*)) 20 units SUBCUT BID [facility] Last Admin: 08/28/17 08:22 Dose: 20 units Insulin Human Lispro (Humalog*) 0 units SUBCUT ACHS [facility] PRN Reason: Protocol Last Admin: 08/28/17 08:22 Dose: 9 units Levothyroxine Sodium (Synthroid Tab*) 25 mcg PO 0600 [facility] Last Admin: 08/28/17 06:17 Dose: 25 mcg Lurasidone HCl (Latuda) 80 mg PO QPM [facility] Last Admin: 08/27/17 17:30 Dose: 80 mg Melatonin (Melatonin (Nf)) 3 mg PO BEDTIME PRN; Protocol PRN Reason: Sleep Last Admin: 08/27/17 21:35 Dose: 3 mg Mirtazapine (Remeron Tab*) 30 mg PO BEDTIME [facility] Last Admin: 08/27/17 20:33 Dose: 30 mg Montelukast Sodium (Singulair Tab*) 10 mg PO DAILY [facility] Last Admin: 08/28/17 08:23 Dose: 10 mg Non-Formulary Medication (Ferrous Sulfate [Iron (Ferrous Sulfate)]) 150 mg PO DAILY [facility] Last Admin: 08/28/17 08:17 Dose: Not Given Norethindrone (Shweta (Nf)) 0.35 mg PO BEDTIME [facility] Last Admin: 08/27/17 20:34 Dose: Not Given Omeprazole (Prilosec Cap*) 20 mg PO 0730,1630 [facility] Ondansetron HCl (Zofran Inj*) 4 mg IV Q6H PRN PRN Reason: NAUSEA Last Admin: 08/27/17 07:54 Dose: 4 mg Topiramate (Topamax(*)) 100 mg PO QAM [facility] Last Admin: 08/28/17 08:23 Dose: 100 mg Topiramate (Topamax(*)) 150 mg PO BEDTIME [facility] Last Admin: 08/27/17 20:33 Dose: 150 mg Vital Signs 08/27/17 08/27/17 08/27/17 09:54 11:04 15:30 Temperature 98.2 F 98.2 F Pulse Rate 88 77 Respiratory 16 16 20 Rate Blood Pressure 120/75 114/62 (mmHg) O2 Sat by Pulse 100 97 Oximetry 08/27/17 08/27/17 08/27/17 18:58 20:00 22:30 Temperature 98.1 F Pulse Rate 92 Respiratory 16 16 18 Rate Blood Pressure 128/79 (mmHg) O2 Sat by Pulse 100 Oximetry 08/27/17 08/28/17 08/28/17 23:15 00:30 04:00 Temperature 98.4 F 98.0 F Pulse Rate 76 74 Respiratory 18 18 18 Rate Blood Pressure 99/57 105/61 (mmHg) O2 Sat by Pulse 92 92 Oximetry Oxygen Devices in Use Now: None Appearance: Alert, sitting on the edge of her bed. Looks depressed. Cardiovascular: NL Sounds; No Murmurs; No JVD, RRR, No Edema, - Abdominal: NL Sounds; No Tenderness; No Distention, No Hepatosplenomegaly, - Extremities: No Edema, No Clubbing, Cyanosis, - Skin: No Rash or Ulcers, No Nodules or Sclerosis, - Neurological: Alert and Oriented x 3, NL Sensation Result Diagrams: 08/26/17 22:56 08/26/17 22:56 Additional Lab and Data: Lab Results 08/26/17 Range/Units 22:56 B-Natriuretic Peptide 20 ( - 100) pg/mL Assess/Plan/Problems-Billing Assessment: - Patient Problems (1) Chest pain Current Visit: Yes Status: Acute Code(s): R07.9 - CHEST PAIN, UNSPECIFIED SNOMED Code(s): 53930874 Comment: Suspect GI cause. She may have responded to omeprazole. Continue it as outpt bid x 2 mos. Fup her PCP. (2) Diabetes Current Visit: Yes Status: Acute Code(s): E11.9 - TYPE 2 DIABETES MELLITUS WITHOUT COMPLICATIONS SNOMED Code(s): 11207800 Comment: Resume home diabetic regimen. (3) Morbid obesity Current Visit: Yes Status: Acute Code(s): E66.01 - MORBID (SEVERE) OBESITY DUE TO EXCESS CALORIES SNOMED Code(s): 167331906 Comment: BMI 48.9 (4) Anemia Current Visit: Yes Status: Acute Code(s): D64.9 - ANEMIA, UNSPECIFIED SNOMED Code(s): 460767234 Comment: Likely iron deficiency. IV iron ordered, likely absorbs po poorly due to bariatric surgery. No menses since her surgery 8 yrs ago. Iron, TIBC, ferritin 08/27 all c/w iron deficiency. Can have outpt iron sucrose as indicated for her anemia. (5) Psychiatric diagnosis Current Visit: Yes Status: Acute Code(s): F99 - MENTAL DISORDER, NOT OTHERWISE SPECIFIED SNOMED Code(s): 23965894 Comment: Continue her home psychotropic meds. Status and Disposition: Discharge now, fup Dr. Tse and her psychiatric nurse.
[2017-08-28 09:27] VITALS: BP 121/67
[2017-08-28] MEDS ORDERED: Ferrous Sulfate TAB* 325 MG PO SCH (09:30)
[2017-08-28] MEDS: Acetaminophen TAB* 325 MG PO PRN (09:56)
[2017-08-28] MEDS: clonazePAM TAB(*) 0.5 MG PO PRN (09:57)
--- NOTE | 2017-08-28 11:32 | DS ---
CC: Dr. Tse DISCHARGE SUMMARY: DATE OF ADMISSION: DATE OF DISCHARGE: 08/28/17 HISTORY OF PRESENT ILLNESS: This 41-year-old woman presented with chest pain, the history is detailed on admission note. She had substernal pain radiating into the left arm. She states that July is always a stressful month for her because her father of a heart attack in July 5 years ago. She took Tums at home without relief. She had a GI cocktail in the emergency room. She was admitted to a monitored bed. Serial troponin levels were all within normal limits. She had 4 troponin levels. Her pain seemed more typical of GI disease. She was given oral and intravenous pantoprazole, the next day her pain had resolved completely. She was given intravenous iron. She has been taking iron 3 times a day at home. Likely, she absorbed iron poorly due to her bariatric surgery and notes she has not had any menses since her surgery 8 years ago. Iron studies were compatible with severe iron deficiency. As mentioned above, the patient was gone the following hospital day. She does well with oral omeprazole and has no further GI symptoms. She probably could be continued on once daily. After a month or two, if there is any question as to the diagnosis, then the EGD could be done as an outpatient. She received iron sucrose 200 mg IV in the hospital. This is the first dose of a series that would be needed to correct her iron deficiency anemia. She could come every week or so as an outpatient and follow her hemoglobin and hematocrit until she is adequately replaced. FINAL DIAGNOSES: 1. Atypical chest pain; suspect gastrointestinal cause. 2. Diabetes. 3. Morbid obesity. 4. Iron deficiency anemia. 5. Psychiatric disorder. DISCHARGE MEDICATIONS: 1. Acetaminophen 650 mg every 6 hours p.r.n. 2. Ferrous sulfate 325 mg b.i.d. 3. Omeprazole 20 mg b.i.d. 4. Diphenhydramine 50 mg h.s. p.r.n. 5. Mirtazapine 30 mg h.s. 6. Levothyroxine 25 mcg daily. 7. Folic acid 1 mg daily. 8. Vitamin B complex 1 daily. 9. Ascorbic acid 500 mg daily. 10. Cetirizine 10 mg daily. 11. Meclizine 25 mg t.i.d. 12. Sumatriptan 50 mg as prescribed. 13. Albuterol inhaler 2 puffs every 4 hours p.r.n. 14. Montelukast [address] 15. D[address] 150 mg b.i.d. 16. Bupropion XL 300 mg daily. 17. Regular insulin as prescribed. 18. Glargine insulin 30 units subcu twice daily. 19. Clonazepam 1 mg b.i.d. p.r.n. 20. Valacyclovir 500 mg b.i.d. as prescribed. 21. Topiramate 100 mg as prescribed. 22. Norethindrone 0.35 mg at bedtime. 23. Multivitamin with mineral 2 tablets daily. 24. Lurasidone 80 mg h.s. 25. Fluticasone 2 puffs b.i.d. 26. Vitamin D3 2000 units daily. 27. Artificial tears 1 drop b.i.d. p.r.n. [id number]/[facility] #: [id number] [facility]
[2017-08-28] MEDS ORDERED: Omeprazole CAP* 20 MG PO SCH (16:30)
== END 2017-08-28 10:30 | disposition home or self-care (01) ==
LOC: ED 22:02 → MEDTELE 08-27 01:31
PROVIDERS: ADMIT Hospitalist; ATTEND Internal Medicine
DX: R07.9 Chest pain, unspecified (principal); E11.9 Type 2 diabetes mellitus without complications; E66.01 Morbid (severe) obesity due to excess calories; D50.9 Iron deficiency anemia, unspecified; F99 Mental disorder, not otherwise specified; I10 Essential (primary) hypertension; G43.909 Migraine, unspecified, not intractable, without status migrainosus; J45.909 Unspecified asthma, uncomplicated; E03.9 Hypothyroidism, unspecified; Z79.899 Other long term (current) drug therapy; Z79.4 Long term (current) use of insulin; Z88.5 Allergy status to narcotic agent; Z88.8 Allergy status to other drugs, medicaments and biological substances; F43.10 Post-traumatic stress disorder, unspecified; F41.9 Anxiety disorder, unspecified; Z87.891 Personal history of nicotine dependence; Z98.84 Bariatric surgery status; I45.81 Long QT syndrome
CPT/HCPCS: 36415; 71010; 80053; 82728; 83540; 83550; 83605; 83735; 83880; 84484; 85025; 85379; 85610; 85730; 93005; 96365; 96372; 96375; 99285; A9270-GY; G0378; J1644; J1756; J2405

== ENCOUNTER 2018-04-06 18:07 | Emergency (ER) | payer MEDICARE, MEDICAID ==
[2018-04-06] MEDS ORDERED: NS 0.9% 1000 ML* 2,000 ML IV ONE (18:11)
[2018-04-06 18:45] LABS: ABS Basophils 0.1 10^3/ul (0-0.2); ABS Eosinophils 0.1 10^3/ul (0-0.6); ABS Lymphocytes 2.8 10^3/ul (1.0-4.8); ABS Monocytes 0.6 10^3/ul (0-0.8); ABS Neutrophils 3.4 10^3/ul (1.5-7.7); ABS Nucleated RBC 0 10^3/ul; Eosinophil % 2.1 % (0-6); Hematocrit 41 % (35-47); Hemoglobin 13.5 g/dl (12.0-16.0); Mean Corpuscular HGB Conc 33 g/dl (31-36); Mean Corpuscular Hemoglobin 31 pg (27-31); Mean Corpuscular Volume 93 fL (80-97); Mean Platelet Volume 8.6 um3 (7.4-10.4); Nucleated Red Blood Cells % 0; Platelet Count 198 10^3/ul (150-450); Red Blood Count 4.37 10^6/ul (4.0-5.4); Red Cell Distribution Width 14 % (10.5-15); White Blood Count 7.1 10^3/ul (3.5-10.8)
[2018-04-06 19:01] LABS: EGFR Non-African American 88.8 (>60)
--- NOTE | 2018-04-06 19:02 | RAD ---
Indication: Syncope. CT of the brain was performed without IV contrast. Ventricular structures are midline. No midline shift is noted. The extraction spaces are unremarkable. There is no evidence of intracranial mass or hemorrhage. No other high or low density lesions are identified. Mastoid air cells and paranasal sinuses are otherwise unremarkable. IMPRESSION: No intracranial mass or hemorrhage is noted.
--- NOTE | 2018-04-06 19:43 | RAD ---
Indication: Syncope. 2 views of the chest are reviewed and compared to previous exam dated August 26, 2017. Prominent epicardial fat is noted is identified on CT. Heart is of normal size and configuration. Lung forbes appear clear. IMPRESSION: Prominent epicardial fat is noted in the right base. No definite pneumonia is noted.
[2018-04-06 19:58] LABS: Urine Appearance Clear; Urine Blood Negative (Negative); Urine Color Straw; Urine Ketones Negative (Negative); Urine Protein Negative (Negative); Urine Specific Gravity 1.022 (1.010-1.030); Urine Urobilinogen Negative (Negative)
[2018-04-06] MEDS ORDERED: Insulin REGULAR(*) 1 UNITS UNIT IV PUSH ONE (19:58)
[2018-04-06] MEDS ORDERED: Ketorolac INJ* 30 MG/ML 1 ML VIAL IV PUSH ONE (20:35)
[2018-04-06 21:18] VITALS: BP 139/68
--- NOTE | 2018-04-07 20:47 | ED ---
Iggy Rodriguez Tiffany, scribed for Silas Chacon MD on 04/06/18 at 1822 . Complex/Multi-Sys Presentation - HPI Summary HPI Summary: 42 year old F BIBA to [facility] complains of migraine since this morning. Symptoms aggravated by nothing. Symptoms alleviated by nothing. Has treated pain with Tylenol without relief. Patient reports dizziness, nausea, vomiting, decreased bowel movements. Denies fever, chills, chest pain, shortness of breath, cough. Patient had colonoscopy and endoscopy Tuesday04/04/18 at [place]. - History Of Current Complaint Time Seen by Provider: 04/06/18 18:11 Hx Obtained From: Patient Onset/Duration: Lasting Hours - this morning, Still Present Aggravating Factor(s): nothing Alleviating Factor(s): nothing Associated Signs And Symptoms: Positive: Other - Allergies/Home Medications Allergies/Adverse Reactions: Allergies Allergy/AdvReac Type Severity Reaction Status Date / Time Adhesive Tape Allergy Mild SKIN TEARS Verified 04/06/18 18:16 & RASH hydromorphone Allergy Hives Verified 04/06/18 18:16 loperamide Allergy Heartburn Verified 04/06/18 18:17 metoclopramide [From Reglan] Allergy Anxiety Verified 04/06/18 18:16 morphine Allergy Pain Verified 04/06/18 18:16 Home Medications: Home Medications Acetaminophen [Tylenol Arthritis] 650 - 1,300 mg PO DAILY PRN 04/06/18 [History Confirmed 04/06/18] Albuterol 2.5MG/3ML (0.083%)* [Ventolin 2.5 MG/3 ML NEB.OLIVIER*] 2.5 mg INH Q4H PRN 04/06/18 [History Confirmed 04/06/18] Albuterol HFA INHALER* [Ventolin HFA Inhaler*] 2 puff INH Q4H PRN 04/06/18 [ History Confirmed 04/06/18] Ascorbic Acid TAB* [Vitamin C TAB*] 1,000 mg PO DAILY WITH MEAL 04/06/18 [ History Confirmed 04/06/18] Atorvastatin* [Lipitor*] 40 mg PO DAILY 04/06/18 [History Confirmed 04/06/18] Bupropion XL* [Wellbutrin XL *] 300 mg PO QAM 04/06/18 [History Confirmed ] Cetirizine* [ZyrTEC 10 MG TAB*] 10 mg PO BEDTIME 04/06/18 [History Confirmed 05/17] Cholecalciferol TAB* [Vitamin D TAB*] 2,000 unit PO DAILY 04/06/18 [History Confirmed 04/06/18] Cyanocobalamin TAB* [Vitamin B12 TAB*] 1,000 mcg PO DAILY 04/06/18 [History Confirmed 04/06/18] EPINEPHrine SYR* [EPINEPHphrine SYR*] 0.1 mg IM ONCE PRN 04/06/18 [History Confirmed 04/06/18] Fluticasone/Vilanterol MDI(NF) [Breo Ellipta MDI (NF)] 1 puff INH DAILY [History Confirmed 04/06/18] Folic Acid TAB* [Folvite TAB*] 1 mg PO DAILY 04/06/18 [History Confirmed ] Insulin ASPART (NF) [Novolog (NF)] 0 units SUBCUT DAILY 04/06/18 [History Confirmed 04/06/18] Insulin Glargine,Hum.rec.anlog [Basaglar Kwikpen] 30 unit SUBCUT BID 04/06/18 [ History Confirmed 04/06/18] Levonorgestrel (Iud) [Mirena IUD] 20 mcg IM DAILY 04/06/18 [History Confirmed ] Levothyroxine TAB* [Synthroid TAB*] 50 mcg PO QAM 04/06/18 [History Confirmed ] Lurasidone(*) [Latuda] 120 mg PO QPM 04/06/18 [History Confirmed 04/06/18] Meclizine TAB* [Antivert 12.5 TAB*] 25 mg PO TID PRN 04/06/18 [History Confirmed 04/06/18] Melatonin (NF) 20 mg PO BEDTIME 04/06/18 [History Confirmed 04/06/18] Mirtazapine TAB* [Remeron TAB*] 45 mg PO BEDTIME 04/06/18 [History Confirmed 05/17] Montelukast Sodium TAB* [Singulair TAB*] 10 mg PO QPM 04/06/18 [History Confirmed 04/06/18] Multivitamins/Minerals TAB* [Theragran/minerals TAB*] 1 tab PO DAILY 04/06/18 [ History Confirmed 04/06/18] Norethindrone [Deblitane] 0.35 mg PO BEDTIME 04/06/18 [History Confirmed ] SUMAtriptan SQ* [Imitrex SQ*] 6 mg SUBCUT SEE INSTRUCTIONS 04/06/18 [History Confirmed 04/06/18] Topiramate TAB(*) [Topamax 100 mg tab] 100 mg PO QAM 04/06/18 [History Confirmed 04/06/18] Topiramate TAB(*) [Topamax 100 mg tab] 150 mg PO QPM 04/06/18 [History Confirmed 04/06/18] Triamcinolone NASAL SPRAY* [Nasacort AQ Nasal [place]*] 1 puff BOTH NARES DAILY [History Confirmed 04/06/18] ValACYclovir (*) [Valtrex 500 mg (*)] 500 mg PO DAILY PRN 04/06/18 [History Confirmed 04/06/18] clonazePAM TAB(*) [KlonoPIN TAB(*)] 1 mg PO TID PRN 04/06/18 [History Confirmed 04/06/18] diPHENhydraMINE PO* [Benadryl PO 25 MG TAB*] 25 mg PO DAILY PRN 04/06/18 [ History Confirmed 04/06/18] PMH/Surg Hx/FS Hx/Imm Hx Previously Healthy: No Endocrine/Hematology History: Reports: Hx Diabetes, Hx Thyroid Disease - hypothyrodism Cardiovascular History: Reports: Hx Hypertension, Other Cardiovascular Problems/ Disorders - low Hb Denies: Hx Congestive Heart Failure, Hx Pacemaker/ICD Respiratory History: Reports: Hx Asthma, Hx Sleep Apnea - cpap at home GI History: Reports: Other GI Disorders - Hernia History: Reports: Hx Renal Disease - chronic renal insuffiency, Other Problems/Disorders - chronic renal insuff Sensory History: Reports: Hx Contacts or Glasses Denies: Hx Hearing Aid Opthamlomology History: Reports: Hx Contacts or Glasses Neurological History: Reports: Hx Migraine, Other Neuro Impairments/Disorders - vertigo Psychiatric History: Reports: Hx Anxiety, Hx Panic Disorder - treated with medication for anxiety, Hx Bipolar Disorder - Cancer History Hx Chemotherapy: No Hx Radiation Therapy: No - Surgical History Surgery Procedure, Year, and Place: 1997 D&C, 1997 lanced bartholin gland cyst, 2007 gastric bypass surgery, 2008 cholecystectomy, 2012 R hernias repair, 2012 angiogram, no blockages found. Colonoscopy and endoscopy 04/04/18 Infectious Disease History: No Infectious Disease History: Denies: Traveled Outside the [place] in Last 30 Days - Family History Known Family History: Positive: Hypertension, Other - [place] - Social History Alcohol Use: Occasionally Hx Substance Use: No Substance Use Type: Reports: None Hx Tobacco Use: Yes Smoking Status (MU): Former Smoker Review of Systems Negative: Fever, Chills Negative: Chest Pain Negative: Shortness Of Breath, Cough Positive: Vomiting, Nausea, Other - decreased bowel movement Neurological: Other - migraine, dizziness All Other Systems Reviewed And Are Negative: Yes Physical Exam - Summary Physical Exam Summary: VITAL SIGNS: Reviewed. GENERAL: Patient is a well-developed and nourished female who is lying comfortable in the stretcher. Patient is not in any acute respiratory distress. Patient is obese. HEAD AND FACE: No signs of trauma. No ecchymosis, hematomas or skull depressions. No sinus tenderness. EYES: PERRLA, EOMI x 2, No injected conjunctiva, no nystagmus. EARS: Hearing grossly intact. Ear canals and tympanic membranes are within normal limits. MOUTH: Oropharynx within normal limits. NECK: Supple, trachea is midline, no adenopathy, no JVD, no carotid bruit, no c- spine tenderness, neck with full ROM. CHEST: Symmetric, no tenderness at palpation LUNGS: Clear to auscultation bilaterally. No wheezing or crackles. CVS: Regular rate and rhythm, S1 and S2 present, no murmurs or gallops appreciated. ABDOMEN: Soft, non-tender. No signs of distention. No rebound no guarding, and no masses palpated. Bowel sounds are normal. EXTREMITIES: FROM in all major joints, no edema, no cyanosis or clubbing. NEURO: Alert and oriented x 3. No acute neurological deficits. Speech is normal and follows commands. SKIN: Dry and warm Triage Information Reviewed: Yes Vital Signs On Initial Exam: Initial Vitals Temp Pulse Resp BP Pulse Ox 98.2 F 85 17 168/101 97 04/06/18 18:11 04/06/18 18:11 04/06/18 18:11 04/06/18 18:11 04/06/18 18:11 Vital Signs Reviewed: Yes Diagnostics - Vital Signs Vital Signs Temp Pulse Resp BP Pulse Ox 04/06/18 18:11 98.2 F 85 17 168/101 97 - Laboratory Lab Results: Lab Results 04/06/18 04/06/18 04/06/18 Range/Units 18:31 18:31 18:31 WBC 7.1 (3.5-10.8) 10^3/ul RBC 4.37 (4.0-5.4) 10^6/ul Hgb 13.5 (12.0-16.0) g/dl Hct 41 (35-47) % MCV 93 (80-97) fL MCH 31 (27-31) pg MCHC 33 (31-36) g/dl RDW 14 (10.5-15) % Plt Count 198 (150-450) 10^3/ul MPV 8.6 (7.4-10.4) um3 Neut % (Auto) 48.8 (38-83) % Lymph % (Auto) 40.0 (25-47) % [place] % (Auto) 7.9 H (0-7) % Eos % (Auto) 2.1 (0-6) % Baso % (Auto) 1.2 (0-2) % Absolute Neuts (auto) 3.4 (1.5-7.7) 10^3/ul Absolute Lymphs (auto) 2.8 (1.0-4.8) 10^3/ul Absolute Monos (auto) 0.6 (0-0.8) 10^3/ul Absolute Eos (auto) 0.1 (0-0.6) 10^3/ul Absolute Basos (auto) 0.1 (0-0.2) 10^3/ul Absolute Nucleated RBC 0 10^3/ul Nucleated RBC % 0 Sodium 136 L (139-145) mmol/L Potassium 4.2 (3.5-5.0) mmol/L Chloride 104 (101-111) mmol/L Carbon Dioxide 24 (22-32) mmol/L Anion Gap 8 (2-11) mmol/L BUN 9 (6-24) mg/dL Creatinine 0.72 (0.51-0.95) mg/dL Est GFR ( Amer) 114.2 (>60) Est GFR (Non-Af Amer) 88.8 (>60) BUN/Creatinine Ratio 12.5 (8-20) Glucose 331 H (70-100) mg/dL Lactic Acid 1.4 (0.5-2.0) mmol/L Calcium 8.9 (8.6-10.3) mg/dL Magnesium 1.8 L (1.9-2.7) mg/dL Total Bilirubin 0.30 (0.2-1.0) mg/dL AST 22 (13-39) U/L ALT 23 (7-52) U/L Alkaline Phosphatase 112 H (34-104) U/L Total Creatine Kinase 49 (10-223) U/L Troponin I 0.00 (<0.04) ng/mL C-Reactive Protein 5.33 H (< 5.00) mg/L B-Natriuretic Peptide ( - 100) pg/mL Total Protein 7.0 (6.4-8.9) g/dL Albumin 3.7 (3.2-5.2) g/dL Globulin 3.3 (2-4) g/dL Albumin/Globulin Ratio 1.1 (1-3) TSH 1.45 (0.34-5.60) mcIU/mL Urine Color Urine Appearance Urine pH (5-9) Ur Specific [place] (1.010-1.030) Urine Protein (Negative) Urine Ketones (Negative) Urine Blood (Negative) Urine Nitrate (Negative) Urine Bilirubin (Negative) Urine Urobilinogen (Negative) Ur Leukocyte Esterase (Negative) Urine Glucose (Negative) Urine Opiates Screen (None Detect) Ur Barbiturates Screen (None Detect) Ur Phencyclidine Scrn (None Detect) Ur Amphetamines Screen (None Detect) U Benzodiazepines Scrn (None Detect) Urine Cocaine Screen (None Detect) U Cannabinoids Screen (None Detect) Serum Alcohol < 10 (<10) mg/dL 04/06/18 04/06/18 04/06/18 Range/Units 18:31 19:38 19:52 WBC (3.5-10.8) 10^3/ul RBC (4.0-5.4) 10^6/ul Hgb (12.0-16.0) g/dl Hct (35-47) % MCV (80-97) fL MCH (27-31) pg MCHC (31-36) g/dl RDW (10.5-15) % Plt Count (150-450) 10^3/ul MPV (7.4-10.4) um3 Neut % (Auto) (38-83) % Lymph % (Auto) (25-47) % [place] % (Auto) (0-7) % Eos % (Auto) (0-6) % Baso % (Auto) (0-2) % Absolute Neuts (auto) (1.5-7.7) 10^3/ul Absolute Lymphs (auto) (1.0-4.8) 10^3/ul Absolute Monos (auto) (0-0.8) 10^3/ul Absolute Eos (auto) (0-0.6) 10^3/ul Absolute Basos (auto) (0-0.2) 10^3/ul Absolute Nucleated RBC 10^3/ul Nucleated RBC % Sodium (139-145) mmol/L Potassium (3.5-5.0) mmol/L Chloride (101-111) mmol/L Carbon Dioxide (22-32) mmol/L Anion Gap (2-11) mmol/L BUN (6-24) mg/dL Creatinine (0.51-0.95) mg/dL Est GFR ( Amer) (>60) Est GFR (Non-Af Amer) (>60) BUN/Creatinine Ratio (8-20) Glucose (70-100) mg/dL Lactic Acid (0.5-2.0) mmol/L Calcium (8.6-10.3) mg/dL Magnesium (1.9-2.7) mg/dL Total Bilirubin (0.2-1.0) mg/dL AST (13-39) U/L ALT (7-52) U/L Alkaline Phosphatase (34-104) U/L Total Creatine Kinase (10-223) U/L Troponin I (<0.04) ng/mL C-Reactive Protein (< 5.00) mg/L B-Natriuretic Peptide 81 ( - 100) pg/mL Total Protein (6.4-8.9) g/dL Albumin (3.2-5.2) g/dL Globulin (2-4) g/dL Albumin/Globulin Ratio (1-3) TSH (0.34-5.60) mcIU/mL Urine Color Straw Urine Appearance Clear Urine pH 5.0 (5-9) Ur Specific [place] 1.022 (1.010-1.030) Urine Protein Negative (Negative) Urine Ketones Negative (Negative) Urine Blood Negative (Negative) Urine Nitrate Negative (Negative) Urine Bilirubin Negative (Negative) Urine Urobilinogen Negative (Negative) Ur Leukocyte Esterase Negative (Negative) Urine Glucose 3+(>=500 mg/dl) A (Negative) Urine Opiates Screen None detected (None Detect) Ur Barbiturates Screen None detected (None Detect) Ur Phencyclidine Scrn None detected (None Detect) Ur Amphetamines Screen None detected (None Detect) U Benzodiazepines Scrn None detected (None Detect) Urine Cocaine Screen None detected (None Detect) U Cannabinoids Screen None detected (None Detect) Serum Alcohol (<10) mg/dL Result Diagrams: 04/06/18 18:31 04/06/18 18:31 Lab Statement: Any lab studies that have been ordered have been reviewed, and results considered in the medical decision making process. - Radiology CXR Radiology Interpretation Completed By: Radiologist - Prominent epicardial fat is noted in the right base. No definite pneumonia is noted. ED physician has reviewed this report. - CT Brain CT Interpretation Completed By: Radiologist - No intracranial mass or hemorrhage is noted. ED physician has reviewed this report. - EKG 18:17 Cardiac Rate: NL - 81 BPM EKG Rhythm: Sinus Rhythm EKG Interpretation: No ST elevations. Re-Evaluation - Re-Evaluation First Eval Re-Evaluation Time: 20:40 Comment: Patient is agreeable to discharge Complex Multi-Symp Course/Dx Assessment/Plan: That is results without any significant abnormality except for sodium 136, glucose 331, CRP of 5.33. Chest x-ray impression: Prominent epicardial fat is noted in the right base. No definite pneumonia noted. Head CT impression: No intercurrent mass or hemorrhage.. In the ED course the patient was given IV fluids, however the patient refused the insulin. The patient developed a migraine headache and she was given Toradol for the pain. After medications the patient feels better. It would be checking her sugars every 2 hours at home and if continues to be high she will give herself insulin for which she has a sliding scale. Patient was sent home with follow-up with PCP. I discussed all the findings and test results with the patient. Patient was instructed to return to the emergency room immediately if any of the symptoms return or worsens. Plan of care was discussed with the patient and understands and agrees. All questions were answered at patient satisfaction. There were no further complaints or concerns. Lung exam before discharge: CTA B /L. Good air exchange. No wheezing or crackles heard. CVS: S1 and S2 present. No murmurs appreciated. Patient is alert and oriented x 3. Patient is hemodynamically stable. Patient will be discharged home with follow up PCP in the next 2-3 days - Diagnoses Provider Diagnoses: Dizziness, Hyperglycemia, Migraine headache Discharge - Sign-Out/Discharge Documenting (check all that apply): Discharge/Admit/Transfer - Discharge Plan Condition: Stable Disposition: HOME Patient Education Materials: Dizziness (ED), Diabetic Hyperglycemia (ED) Referrals: Saw Morgan [Primary Care Provider] - 3 Days Additional Instructions: FOLLOW UP WITH YOUR PRIMARY CARE PROVIDER IN 3 DAYS. RETURN TO THE EMERGENCY DEPARTMENT FOR ANY WORSENING OR NEW SYMPTOMS. - Billing Disposition and Condition Condition: STABLE Disposition: Home The documentation as recorded by the Iggy neri Tiffany accurately reflects the service I personally performed and the decisions made by , Silas Chacon MD.
== END 2018-04-06 21:17 | disposition home or self-care (01) ==
LOC: ED 18:07
DX: R42 Dizziness and giddiness (principal); E11.65 Type 2 diabetes mellitus with hyperglycemia; G43.909 Migraine, unspecified, not intractable, without status migrainosus; I10 Essential (primary) hypertension; E03.9 Hypothyroidism, unspecified; Z87.891 Personal history of nicotine dependence; Z79.4 Long term (current) use of insulin; Z79.899 Other long term (current) drug therapy; Z88.5 Allergy status to narcotic agent; Z88.8 Allergy status to other drugs, medicaments and biological substances
CPT/HCPCS: 36415; 70450; 71046; 80053; 80307; 80320; 81003; 82550; 83605; 83735; 83880; 84443; 84484; 85025; 86140; 93005; 96361; 96374; 99283; G0480; J1885

== ENCOUNTER 2018-04-28 13:03 | Emergency (ER) | payer MEDICARE, MEDICAID ==
[2018-04-28 14:37] VITALS: BP 141/93
[2018-04-28] MEDS ORDERED: diPHENhydraMINE IV* 50 MG/ML 1 ml VIAL (BENADRYL) IV ONE (15:04)
[2018-04-28] MEDS ORDERED: PROCHLORPERAZINE INJ 5 MG/ML 2 ML VIAL IV ONE (15:04)
[2018-04-28] MEDS ORDERED: Ketorolac INJ* 30 MG/ML 1 ML VIAL IV PUSH ONE (15:04)
[2018-04-28] MEDS ORDERED: NS 0.9% 1000 ML* 1,000 ML IV ONE (15:04)
[2018-04-28 15:24] LABS: ABS Basophils 0.1 10^3/ul (0-0.2); ABS Eosinophils 0.2 10^3/ul (0-0.6); ABS Lymphocytes 2.7 10^3/ul (1.0-4.8); ABS Monocytes 0.5 10^3/ul (0-0.8); ABS Neutrophils 3.8 10^3/ul (1.5-7.7); ABS Nucleated RBC 0 10^3/ul; Eosinophil % 2.7 % (0-6); Hematocrit 39 % (35-47); Hemoglobin 12.8 g/dl (12.0-16.0); Lymphocyte % 37.3 % (25-47); Mean Corpuscular HGB Conc 33 g/dl (31-36); Mean Corpuscular Hemoglobin 31 pg (27-31); Mean Corpuscular Volume 93 fL (80-97); Mean Platelet Volume 7.8 um3 (7.4-10.4); Nucleated Red Blood Cells % 0.1; Platelet Count 197 10^3/ul (150-450); Red Blood Count 4.21 10^6/ul (4.00-5.40); Red Cell Distribution Width 14 % (10.5-15); White Blood Count 7.3 10^3/ul (3.5-10.8)
--- NOTE | 2018-04-30 06:14 | ED ---
Headache - HPI Summary HPI Summary: Patient is a 42-year-old female with a history of migraines presenting to the ED with migraine despite at home imitrex sq, tylenol, benadryl and clonzapam without any relief of pain. She states she has been seen here before with this and has been given a "migraine cocktail" with good relief. She states this feels as her typical migraine with diffuse tenderness across the frontal area with associated twitching to the left eye. Headache is 8/10, not worst of life , constant and throbbing. Symptoms alleviated with nothing, aggravated by light and sound. - History Of Current Complaint Chief Complaint: EDHeadache Stated Complaint: MIGRAINE Time Seen by Provider: 04/28/18 13:22 Hx Obtained From: Patient Onset/Duration: Sudden Onset Initially Headache Was: Initial Pain Scale(0-10)= - 8 Currently Pain Is: Current Pain Scale(0-10)= - 8 Timing: Constant Character: Throbbing Aggravating Factor: Bright Lights Allevating Factors: Nothing Associated Signs And Symptoms: Negative - Risk Factors SAH Risk Factors: Negative Meningitis Risk Factors: Negative SDH Risk Factors: Negative Temporal Arteritis Risk Factors: Female, - Allergies/Home Medications Allergies/Adverse Reactions: Allergies Allergy/AdvReac Type Severity Reaction Status Date / Time Adhesive Tape Allergy Mild SKIN TEARS Verified 04/06/18 18:16 & RASH hydromorphone Allergy Hives Verified 04/06/18 18:16 loperamide Allergy Heartburn Verified 04/06/18 18:17 metoclopramide [From Reglan] Allergy Anxiety Verified 04/06/18 18:16 morphine Allergy Pain Verified 04/06/18 18:16 PMH/Surg Hx/FS Hx/Imm Hx Previously Healthy: Yes Endocrine/Hematology History: Reports: Hx Diabetes, Hx Thyroid Disease - hypothyrodism Cardiovascular History: Reports: Hx Hypertension, Other Cardiovascular Problems/ Disorders - low Hb Denies: Hx Congestive Heart Failure, Hx Pacemaker/ICD Respiratory History: Reports: Hx Asthma, Hx Sleep Apnea - cpap at home GI History: Reports: Other GI Disorders - Hernia History: Reports: Hx Renal Disease - chronic renal insuffiency, Other Problems/Disorders - chronic renal insuff Sensory History: Reports: Hx Contacts or Glasses Denies: Hx Hearing Aid Opthamlomology History: Reports: Hx Contacts or Glasses Neurological History: Reports: Hx Migraine, Other Neuro Impairments/Disorders - vertigo Psychiatric History: Reports: Hx Anxiety, Hx Panic Disorder - treated with medication for anxiety, Hx Bipolar Disorder - Cancer History Hx Chemotherapy: No Hx Radiation Therapy: No - Surgical History Surgery Procedure, Year, and Place: 1997 D&C, 1997 lanced bartholin gland cyst, 2007 gastric bypass surgery, 2008 cholecystectomy, 2012 R hernias repair, 2012 angiogram, no blockages found. Colonoscopy and endoscopy 04/04/18 - Immunization History Date of Tetanus Vaccine: unk Date of Influenza Vaccine: unk Infectious Disease History: No Infectious Disease History: Denies: Traveled Outside the [place] in Last 30 Days - Family History Known Family History: Positive: Hypertension, Other - [place] - Social History Occupation: Employed Full-time Lives: With Family Alcohol Use: Occasionally Hx Substance Use: No Substance Use Type: Reports: None Hx Tobacco Use: Yes Smoking Status (MU): Former Smoker Review of Systems Constitutional: Negative Negative: Fever, Chills, Fatigue, Skin Diaphoresis Positive: Photophobia Negative: Palpitations, Chest Pain Negative: Shortness Of Breath, Cough Genitourinary: Negative Positive: no symptoms reported, see HPI Positive: Headache Psychological: Normal All Other Systems Reviewed And Are Negative: Yes Physical Exam Triage Information Reviewed: Yes Vital Signs On Initial Exam: Initial Vitals Temp Pulse Resp BP Pulse Ox 98.6 F 85 18 145/79 94 04/28/18 13:05 04/28/18 13:05 04/28/18 13:05 04/28/18 13:05 04/28/18 13:05 Vital Signs Reviewed: Yes Appearance: Positive: Well-Appearing, Well-Nourished Skin: Positive: Warm, Skin Color Reflects Adequate Perfusion Head/Face: Positive: Normal Head/Face Inspection Neck: Positive: Supple, No Lymphadenopathy Respiratory/Lung Sounds: Positive: Clear to Auscultation, Breath Sounds Present Cardiovascular: Positive: RRR, Pulses are Symmetrical in both Upper and Lower Extremities Musculoskeletal: Positive: Normal, Strength/ROM Intact Neurological: Positive: Alert, Oriented to Person Place, Time, Speech Normal Psychiatric: Positive: Normal, Affect/Mood Appropriate, Anxious Diagnostics - Vital Signs Vital Signs Temp Pulse Resp BP Pulse Ox 04/28/18 17:06 97.9 F 85 16 141/93 97 04/28/18 14:36 97.9 F 87 16 141/93 97 04/28/18 13:05 98.6 F 85 18 145/79 94 - Laboratory Lab Results: Lab Results 04/28/18 04/28/18 04/28/18 Range/Units 15:13 15:13 16:26 WBC 7.3 (3.5-10.8) 10^3/ul RBC 4.21 (4.00-5.40) 10^6/ul Hgb 12.8 (12.0-16.0) g/dl Hct 39 (35-47) % MCV 93 (80-97) fL MCH 31 (27-31) pg MCHC 33 (31-36) g/dl RDW 14 (10.5-15) % Plt Count 197 (150-450) 10^3/ul MPV 7.8 (7.4-10.4) um3 Neut % (Auto) 51.7 (38-83) % Lymph % (Auto) 37.3 (25-47) % [place] % (Auto) 7.3 H (0-7) % Eos % (Auto) 2.7 (0-6) % Baso % (Auto) 1.0 (0-2) % Absolute Neuts (auto) 3.8 (1.5-7.7) 10^3/ul Absolute Lymphs (auto) 2.7 (1.0-4.8) 10^3/ul Absolute Monos (auto) 0.5 (0-0.8) 10^3/ul Absolute Eos (auto) 0.2 (0-0.6) 10^3/ul Absolute Basos (auto) 0.1 (0-0.2) 10^3/ul Absolute Nucleated RBC 0 10^3/ul Nucleated RBC % 0.1 ESR 28 H (0-14) mm/Hr Sodium 137 (135-145) mmol/L Potassium 3.9 (3.5-5.0) mmol/L Chloride 107 (101-111) mmol/L Carbon Dioxide 24 (22-32) mmol/L Anion Gap 6 (2-11) mmol/L BUN 12 (6-24) mg/dL Creatinine 0.65 (0.51-0.95) mg/dL Est GFR ( Amer) 120.9 (>60) Est GFR (Non-Af Amer) 100.0 (>60) BUN/Creatinine Ratio 18.5 (8-20) Glucose 114 H (70-100) mg/dL POC Glucose (mg/dL) 70 (70-100) mg/dL Calcium 8.7 (8.6-10.3) mg/dL Total Bilirubin 0.30 (0.2-1.0) mg/dL AST 26 (13-39) U/L ALT 21 (7-52) U/L Alkaline Phosphatase 107 H (34-104) U/L Total Protein 6.6 (6.4-8.9) g/dL Albumin 3.4 (3.2-5.2) g/dL Globulin 3.2 (2-4) g/dL Albumin/Globulin Ratio 1.1 (1-3) 04/28/18 Range/Units 16:51 WBC (3.5-10.8) 10^3/ul RBC (4.00-5.40) 10^6/ul Hgb (12.0-16.0) g/dl Hct (35-47) % MCV (80-97) fL MCH (27-31) pg MCHC (31-36) g/dl RDW (10.5-15) % Plt Count (150-450) 10^3/ul MPV (7.4-10.4) um3 Neut % (Auto) (38-83) % Lymph % (Auto) (25-47) % [place] % (Auto) (0-7) % Eos % (Auto) (0-6) % Baso % (Auto) (0-2) % Absolute Neuts (auto) (1.5-7.7) 10^3/ul Absolute Lymphs (auto) (1.0-4.8) 10^3/ul Absolute Monos (auto) (0-0.8) 10^3/ul Absolute Eos (auto) (0-0.6) 10^3/ul Absolute Basos (auto) (0-0.2) 10^3/ul Absolute Nucleated RBC 10^3/ul Nucleated RBC % ESR (0-14) mm/Hr Sodium (135-145) mmol/L Potassium (3.5-5.0) mmol/L Chloride (101-111) mmol/L Carbon Dioxide (22-32) mmol/L Anion Gap (2-11) mmol/L BUN (6-24) mg/dL Creatinine (0.51-0.95) mg/dL Est GFR ( Amer) (>60) Est GFR (Non-Af Amer) (>60) BUN/Creatinine Ratio (8-20) Glucose (70-100) mg/dL POC Glucose (mg/dL) 80 (70-100) mg/dL Calcium (8.6-10.3) mg/dL Total Bilirubin (0.2-1.0) mg/dL AST (13-39) U/L ALT (7-52) U/L Alkaline Phosphatase (34-104) U/L Total Protein (6.4-8.9) g/dL Albumin (3.2-5.2) g/dL Globulin (2-4) g/dL Albumin/Globulin Ratio (1-3) Result Diagrams: 04/28/18 15:13 04/28/18 15:13 Lab Statement: Any lab studies that have been ordered have been reviewed, and results considered in the medical decision making process. Headache Course/Dx - Course Course Of Treatment: Patient is given Toradol, Benadryl, fluids and Compazine. Recheck of 1 hour later, patient is improved and is requesting discharge home. Vital signs stable. Lungs CTA. RRR. Pupils equal and reactive to light. Ambulating well. Hydrating well. - Diagnoses Provider Diagnoses: Migraine Discharge - Sign-Out/Discharge Documenting (check all that apply): Discharge/Admit/Transfer - Discharge Plan Condition: Stable Disposition: HOME Patient Education Materials: Migraine Headache (ED) Referrals: Saw Morgan [Primary Care Provider] - Additional Instructions: Please return if your symptoms are not well controlled with your at home medications - Billing Disposition and Condition Condition: STABLE Disposition: Home
== END 2018-04-28 17:07 | disposition home or self-care (01) ==
LOC: ED 13:03
DX: G43.909 Migraine, unspecified, not intractable, without status migrainosus (principal); Z87.891 Personal history of nicotine dependence; Z88.8 Allergy status to other drugs, medicaments and biological substances; Z88.5 Allergy status to narcotic agent
CPT/HCPCS: 36415; 80053; 85025; 85652; 96374; 96375; 99282; J0780; J1200; J1885

== ENCOUNTER 2018-05-11 18:02 | Observation (INO) | payer MEDICARE, MEDICAID ==
--- NOTE | 2018-05-11 18:15 | ED ---
HPI Chest Pain - HPI Summary HPI Summary: 42 y/o female BIBA c/o CP starting at around 16:00 today. CP located in the mid- sternal region, radiating to L arm. CP initially moderate, increased to a 10/10 now. Associated sx: migraine HERNANDEZ (chronic migraines). PMHx GERD, DM, asthma, thyroid. FHx father MD (59). Gastric bypass 2007 ([place]). Chemical stress test in 2013. - History of Current Complaint Chief Complaint: EDChestWallPain Time Seen by Provider: 05/11/18 18:07 Hx Obtained From: Patient Onset/Duration: Started Hours Ago, Still Present Timing: Constant Initial Severity: Moderate Current Severity: Severe Pain Intensity: 10 Pain Scale Used: 0-10 Numeric Chest Pain Location: Mid Sternal Chest Pain Radiates: Yes Chest Pain Radiates To:: Arm - L Associated Signs and Symptoms: Positive: Chest Pain, Headaches - Additional Pertinent History Primary Care Physician: ARJUN - Allergy/Home Medications Allergies/Adverse Reactions: Allergies Allergy/AdvReac Type Severity Reaction Status Date / Time Adhesive Tape Allergy Mild SKIN TEARS Verified 04/06/18 18:16 & RASH hydromorphone Allergy Hives Verified 04/06/18 18:16 loperamide Allergy Heartburn Verified 04/06/18 18:17 metoclopramide [From Reglan] Allergy Anxiety Verified 04/06/18 18:16 morphine Allergy Pain Verified 04/06/18 18:16 PMH/Surg Hx/FS Hx/Imm Hx Previously Healthy: No Endocrine/Hematology History: Reports: Hx Diabetes, Hx Thyroid Disease - hypothyrodism Cardiovascular History: Reports: Hx Hypertension, Other Cardiovascular Problems/ Disorders - low Hb Denies: Hx Congestive Heart Failure, Hx Pacemaker/ICD Respiratory History: Reports: Hx Asthma, Hx Sleep Apnea - cpap at home GI History: Reports: Other GI Disorders - Hernia History: Reports: Hx Renal Disease - chronic renal insuffiency, Other Problems/Disorders - chronic renal insuff Sensory History: Reports: Hx Contacts or Glasses Denies: Hx Hearing Aid Opthamlomology History: Reports: Hx Contacts or Glasses Neurological History: Reports: Hx Migraine, Other Neuro Impairments/Disorders - vertigo Psychiatric History: Reports: Hx Anxiety, Hx Panic Disorder - treated with medication for anxiety, Hx Bipolar Disorder - Cancer History Hx Chemotherapy: No Hx Radiation Therapy: No - Surgical History Surgery Procedure, Year, and Place: 1997 D&C, 1997 lanced bartholin gland cyst, 2007 gastric bypass surgery, 2008 cholecystectomy, 2012 R hernias repair, 2013 angiogram, no blockages found. Colonoscopy and endoscopy 04/04/18 - Immunization History Date of Tetanus Vaccine: unk Date of Influenza Vaccine: unk Infectious Disease History: No Infectious Disease History: Denies: Traveled Outside the [place] in Last 30 Days - Family History Known Family History: Positive: Hypertension, Other - MD - Social History Alcohol Use: Occasionally Hx Substance Use: No Substance Use Type: Reports: None Hx Tobacco Use: Yes Smoking Status (MU): Former Smoker Review of Systems Negative: Fever, Chills Negative: Erythema Negative: Sore Throat Positive: Chest Pain Negative: Shortness Of Breath, Cough Negative: Abdominal Pain, Vomiting, Nausea Negative: dysuria, hematuria Negative: Myalgia, Edema Negative: Rash Neurological: Other - NO dizziness Positive: Headache All Other Systems Reviewed And Are Negative: Yes Physical Exam - Summary Physical Exam Summary: Constitutional: Well-developed, Well-nourished, Alert. (-) Distressed Skin: Warm, Dry HENT: Normocephalic; Atraumatic Eyes: Conjunctiva normal Neck: Musculoskeletal ROM normal neck. (-) JVD, (-) Stridor, (-) Tracheal deviation Cardio: Rhythm regular, rate normal, Heart sounds normal; Intact distal pulses; The pedal pulses are 2+ and symmetric. Radial pulses are 2+ and symmetric. (-) Murmur Pulmonary/Chest wall: Effort normal. (-) Respiratory distress, (-) Wheezes, (-) Rales Abd: Soft, (-), epigastric tenderness, (-) Distension, (-) Guarding, (-) Rebound Musculoskeletal: (-) Edema Lymph: (-) Cervical adenopathy Neuro: Alert, Oriented x3 Psych: Anxious appearing. Triage Information Reviewed: Yes Vital Signs On Initial Exam: Initial Vitals Temp Pulse Resp BP Pulse Ox 98.2 F 86 18 110/70 99 05/11/18 18:04 05/11/18 18:04 05/11/18 18:04 05/11/18 18:04 05/11/18 18:04 Vital Signs Reviewed: Yes Diagnostics - Vital Signs Vital Signs Temp Pulse Resp BP Pulse Ox 05/11/18 18:04 98.2 F 86 18 110/70 99 - Laboratory Result Diagrams: 05/11/18 20:20 05/11/18 20:20 Lab Statement: Any lab studies that have been ordered have been reviewed, and results considered in the medical decision making process. - Radiology CXR Xray Interpretation: No Acute Changes - Cardiomegaly without evidence for pulmonary edema. No acute cardiopulmonary process evident. Radiology Interpretation Completed By: Radiologist - EKG 1 EKG Interpretation: 20:30 - SR @ 81 BPM. No STEMI. Chest Pain Course/Dx - Course Assessment/Plan: Pt's CP improved in ED, now mild 12/10. Pt does not want to be sent home and wishes to stay in the ED. Spoke with Dr. Mcgee, who will evaluate pt. Pt will be signed out to Dr. Tejeda pending Arely dispo. - Diagnoses Provider Diagnoses: Chest pain, unspecified, Migraine headache - Provider Notifications Discussed Care Of Patient With: Rustam Mcgee Time Discussed With Above Provider: 23:06 Discharge - Sign-Out/Discharge Documenting (check all that apply): Sign-Out Patient Signing out patient TO: Eugene Tejeda Receiving patient FROM: Anthony Min - Discharge Plan
[2018-05-11] MEDS ORDERED: Aspirin 81 mg CHEW TAB* 81 MG TAB.CHEW PO ONE (19:46)
[2018-05-11] MEDS ORDERED: Nitroglycerin TAB 0.4 MG* 0.4 MG TAB SL ONE (19:46)
[2018-05-11] MEDS ORDERED: PROCHLORPERAZINE INJ 5 MG/ML 2 ML VIAL IV ONE (19:48)
--- NOTE | 2018-05-11 20:10 | RAD ---
Indication: Chest pain. History of tobacco use and obstructive lung disease. Comparison: April 06, 2018 Technique: Upright AP 1958 hours Report: No focal pulmonary lesion, compelling alveolar consolidation, pleural effusion, pneumothorax. Unchanged cardiomegaly. Unremarkable central pulmonary vasculature. Unremarkable mediastinal contours. IMPRESSION: #. Cardiomegaly without evidence for pulmonary edema. No acute cardiopulmonary process evident.
[2018-05-11 20:27] LABS: ABS Basophils 0 10^3/ul (0-0.2); ABS Eosinophils 0.2 10^3/ul (0-0.6); ABS Lymphocytes 2.8 10^3/ul (1.0-4.8); ABS Monocytes 0.6 10^3/ul (0-0.8); ABS Neutrophils 3.6 10^3/ul (1.5-7.7); ABS Nucleated RBC 0 10^3/ul; Eosinophil % 2.1 % (0-6); Hematocrit 38 % (35-47); Hemoglobin 12.8 g/dl (12.0-16.0); Lymphocyte % 39.5 % (25-47); Mean Corpuscular HGB Conc 34 g/dl (31-36); Mean Corpuscular Hemoglobin 31 pg (27-31); Mean Corpuscular Volume 92 fL (80-97); Mean Platelet Volume 7.5 um3 (7.4-10.4); Nucleated Red Blood Cells % 0; Platelet Count 234 10^3/ul (150-450); Red Blood Count 4.15 10^6/ul (4.00-5.40); Red Cell Distribution Width 14 % (10.5-15); White Blood Count 7.2 10^3/ul (3.5-10.8)
[2018-05-11 20:43] LABS: EGFR Non-African American 101.8 (>60)
[2018-05-11] MEDS ORDERED: Sucralfate TAB* 1 GM PO ONE (22:51)
[2018-05-11] MEDS ORDERED: Dexamethasone IV* 4 MG/ML 1 ML (4 MG) IV SLOW PU ONE (23:00)
[2018-05-11] MEDS ORDERED: Ketorolac INJ* 30 MG/ML 1 ML VIAL IV PUSH ONE (23:00)
--- NOTE | 2018-05-12 01:18 | HP ---
H&P (Free Text) History and Physical: PCP: Aiyana Tse MD Date/Time: 05/11/2018 0100 CC: chest pain HPI: Ms Johnson is a 41YO morbidly obese female HX DM2, HTN, HLD presents with onset ~1530 while relaxing to improve a migraine associated with nausea of 10/ 10 L chest pressure radiating down her L arm associated with mild SOB, but no palpitations, light-headedness, or sweats. Her migraine has since resolved, but her chest pain persists at 8/10. She denies exacerbating or alleviating factors. She tried Tums before calling EMS which didn't help although she also stated later that taking such medications makes her chest pain worse. She is lying comfortably with no objective evidence of discomfort. ECG is negative as are her initial 2 troponins. She was observed in July for similar symptoms, but did not receive a stress test. At this, time I will order a stress test for more definitive evaluation in light of her risk factors. Her last stress test was reportedly 2012. PMedHx DM2, insulin requiring asthma HTN hypothyroidism anemia PTSD panic disorder anxiety migraines diverticulosis Ambulatory Orders Nursing to reconcile. Acetaminophen [Tylenol Arthritis] 650 - 1,300 mg PO DAILY PRN 04/06/18 Albuterol 2.5MG/3ML (0.083%)* [Ventolin 2.5 MG/3 ML NEB.OLIVIER*] 2.5 mg INH Q4H PRN 04/06/18 Albuterol HFA INHALER* [Ventolin HFA Inhaler*] 2 puff INH Q4H PRN 04/06/18 Ascorbic Acid TAB* [Vitamin C TAB*] 1,000 mg PO DAILY WITH MEAL 04/06/18 Atorvastatin* [Lipitor*] 40 mg PO DAILY 04/06/18 Bupropion XL* [Wellbutrin XL *] 300 mg PO QAM 04/06/18 Cetirizine* [ZyrTEC 10 MG TAB*] 10 mg PO BEDTIME 04/06/18 Cholecalciferol TAB* [Vitamin D TAB*] 2,000 unit PO DAILY 04/06/18 Cyanocobalamin TAB* [Vitamin B12 TAB*] 1,000 mcg PO DAILY 04/06/18 EPINEPHrine SYR* [EPINEPHphrine SYR*] 0.1 mg IM ONCE PRN 04/06/18 Fluticasone/Vilanterol MDI(NF) [Breo Ellipta MDI (NF)] 1 puff INH DAILY Folic Acid TAB* [Folvite TAB*] 1 mg PO DAILY 04/06/18 Insulin ASPART (NF) [Novolog (NF)] 0 units SUBCUT DAILY 04/06/18 Insulin Glargine,Hum.rec.anlog [Basaglar Kwikpen] 30 unit SUBCUT BID 04/06/18 Levonorgestrel (Iud) [Mirena IUD] 20 mcg IM DAILY 04/06/18 Levothyroxine TAB* [Synthroid TAB*] 50 mcg PO QAM 04/06/18 Lurasidone(*) [Latuda] 120 mg PO QPM 04/06/18 Meclizine TAB* [Antivert 12.5 TAB*] 25 mg PO TID PRN 04/06/18 Melatonin (NF) 20 mg PO BEDTIME 04/06/18 Mirtazapine TAB* [Remeron TAB*] 45 mg PO BEDTIME 04/06/18 Montelukast Sodium TAB* [Singulair TAB*] 10 mg PO QPM 04/06/18 Multivitamins/Minerals TAB* [Theragran/minerals TAB*] 1 tab PO DAILY 04/06/18 Norethindrone [Deblitane] 0.35 mg PO BEDTIME 04/06/18 SUMAtriptan SQ* [Imitrex SQ*] 6 mg SUBCUT SEE INSTRUCTIONS 04/06/18 Topiramate TAB(*) [Topamax 100 mg tab] 100 mg PO QAM 04/06/18 Topiramate TAB(*) [Topamax 100 mg tab] 150 mg PO QPM 04/06/18 Triamcinolone NASAL SPRAY* [Nasacort AQ Nasal [place]*] 1 puff BOTH NARES DAILY ValACYclovir (*) [Valtrex 500 mg (*)] 500 mg PO DAILY PRN 04/06/18 clonazePAM TAB(*) [KlonoPIN TAB(*)] 1 mg PO TID PRN 04/06/18 diPHENhydraMINE PO* [Benadryl PO 25 MG TAB*] 25 mg PO DAILY PRN 04/06/18 Allergies Adhesive Tape Allergy (Mild, Verified 04/06/18 18:16) SKIN TEARS & RASH hydromorphone Allergy (Verified 04/06/18 18:16) Hives loperamide Allergy (Verified 04/06/18 18:17) Heartburn metoclopramide [From Reglan] Allergy (Verified 04/06/18 18:16) Anxiety morphine Allergy (Verified 04/06/18 18:16) Pain PSurgHx hiatal hernia repair gastric bypass cholecystectomy D&C SocHx: quit smoking in 2007, rare alcohol, denies recreational drugs; single, lives alone; unemployed, has filed for disability; full code status FamHx: Mother: alive at 67 with hypothyroidism; Father: passed at 59 of CAD/AK; Sister: alive with Raynaud's disease ROS: as above, otherwise reviewed and all were negative vitals: Vital Signs Temp 36.8 C 05/11/18 18:04 Pulse 84 05/12/18 00:00 Resp 16 05/12/18 00:00 BP 98/80 05/11/18 22:53 Pulse Ox 95 05/12/18 00:00 Intake & Output 05/11/18 05/11/1818 11:59 23:59 11:59 Weight 108.862 kg Constitutional: NAD, normally developed, morbidly obese white female HEENM: atraumatic; sclera/conjunctiva: non-icteric/clear; hearing: clinically intact; oropharynx: clear, mucosa moist Neck: soft tissue: non-tender; thyroid: normal Pulmonary: clear to auscultation bilaterally, good aeration, no accessory muscle use CV: RR/RR, normal S1S2, no carotid bruit, no jugular venous distention, 1+ B DP/ PT, no edema Abdominal: soft, non-distended, non-tender, no rebound/guarding/rigidity, normoactive bowel sounds, no hepatosplenomegaly or masses, no costovertebral angle tenderness Musculoskeletal: general: grossly intact, no palpable tenderness Integumental: normal appearance and texture of exposed skin Psychiatric orientation: AA&O to PPS affect: flat mood: cooperative eye contact: fair to poor content: reliable responses: mildly slowed insight: fair to poor Testing: Lab Results 05/11/18 05/11/18 05/11/18 Range/Units 20:20 20:20 20:20 WBC 7.2 (3.5-10.8) 10^3/ul RBC 4.15 (4.00-5.40) 10^6/ul Hgb 12.8 (12.0-16.0) g/dl Hct 38 (35-47) % MCV 92 (80-97) fL MCH 31 (27-31) pg MCHC 34 (31-36) g/dl RDW 14 (10.5-15) % Plt Count 234 (150-450) 10^3/ul MPV 7.5 (7.4-10.4) um3 Neut % (Auto) 50.1 (38-83) % Lymph % (Auto) 39.5 (25-47) % Caroline % (Auto) 7.8 H (0-7) % Eos % (Auto) 2.1 (0-6) % Baso % (Auto) 0.5 (0-2) % Absolute Neuts (auto) 3.6 (1.5-7.7) 10^3/ul Absolute Lymphs (auto) 2.8 (1.0-4.8) 10^3/ul Absolute Monos (auto) 0.6 (0-0.8) 10^3/ul Absolute Eos (auto) 0.2 (0-0.6) 10^3/ul Absolute Basos (auto) 0 (0-0.2) 10^3/ul Absolute Nucleated RBC 0 10^3/ul Nucleated RBC % 0 Sodium 138 (135-145) mmol/L Potassium 4.1 (3.5-5.0) mmol/L Chloride 107 (101-111) mmol/L Carbon Dioxide 26 (22-32) mmol/L Anion Gap 5 (2-11) mmol/L BUN 13 (6-24) mg/dL Creatinine 0.64 (0.51-0.95) mg/dL Est GFR ( Amer) 123.1 (>60) Est GFR (Non-Af Amer) 101.8 (>60) BUN/Creatinine Ratio 20.3 H (8-20) Glucose 115 H (70-100) mg/dL Lactic Acid 0.8 (0.5-2.0) mmol/L Calcium 8.9 (8.6-10.3) mg/dL Total Bilirubin 0.30 (0.2-1.0) mg/dL AST 55 H (13-39) U/L ALT 78 H (7-52) U/L Alkaline Phosphatase 173 H (34-104) U/L Troponin I 0.00 (<0.04) ng/mL Total Protein 7.0 (6.4-8.9) g/dL Albumin 3.6 (3.2-5.2) g/dL Globulin 3.4 (2-4) g/dL Albumin/Globulin Ratio 1.1 (1-3) /10/17 Range/Units 23:18 WBC (3.5-10.8) 10^3/ul RBC (4.00-5.40) 10^6/ul Hgb (12.0-16.0) g/dl Hct (35-47) % MCV (80-97) fL MCH (27-31) pg MCHC (31-36) g/dl RDW (10.5-15) % Plt Count (150-450) 10^3/ul MPV (7.4-10.4) um3 Neut % (Auto) (38-83) % Lymph % (Auto) (25-47) % Caroline % (Auto) (0-7) % Eos % (Auto) (0-6) % Baso % (Auto) (0-2) % Absolute Neuts (auto) (1.5-7.7) 10^3/ul Absolute Lymphs (auto) (1.0-4.8) 10^3/ul Absolute Monos (auto) (0-0.8) 10^3/ul Absolute Eos (auto) (0-0.6) 10^3/ul Absolute Basos (auto) (0-0.2) 10^3/ul Absolute Nucleated RBC 10^3/ul Nucleated RBC % Sodium (135-145) mmol/L Potassium (3.5-5.0) mmol/L Chloride (101-111) mmol/L Carbon Dioxide (22-32) mmol/L Anion Gap (2-11) mmol/L BUN (6-24) mg/dL Creatinine (0.51-0.95) mg/dL Est GFR ( Amer) (>60) Est GFR (Non-Af Amer) (>60) BUN/Creatinine Ratio (8-20) Glucose (70-100) mg/dL Lactic Acid (0.5-2.0) mmol/L Calcium (8.6-10.3) mg/dL Total Bilirubin (0.2-1.0) mg/dL AST (13-39) U/L ALT (7-52) U/L Alkaline Phosphatase (34-104) U/L Troponin I 0.00 (<0.04) ng/mL Total Protein (6.4-8.9) g/dL Albumin (3.2-5.2) g/dL Globulin (2-4) g/dL Albumin/Globulin Ratio (1-3) ECG, personally reviewed: NSR rate 81, no ischemia CXR, personally reviewed: IMPRESSION: #. Cardiomegaly without evidence for pulmonary edema. No acute cardiopulmonary process evident. Impression: 41F HX morbid obesity, DM2, & HTN presents with atypical chest pain for r/o ACS DIAGNOSIS & PLAN Primary atypical chest pain r/o ACS : telemetry : trend troponin : aspirin : supplemental oxygen : chemical NST in AM : consider cardiology consult pending above results : supportive care Secondary asthma : review meds once reconciled DM2 : insulin carb ratio diet : A1c 10.1 01/2018 : Q4H glucometry : basal/bolus/correctional insulin hypothyroidism : review meds once reconciled anemia : continue outpatient monitoring w/ PCP PTSD : review meds once reconciled panic disorder : review meds once reconciled anxiety : review meds once reconciled HTN : review meds once reconciled migraines : review meds once reconciled Admission Rational: CDU observation for r/o ACS DVTp: heparin SQ Code Status: full
[2018-05-12] MEDS ORDERED: clonazePAM TAB(*) 1 MG PO PRN (01:24)
[2018-05-12] MEDS ORDERED: Albuterol HFA INHALER* 8 gm MDI INH PRN (01:24)
[2018-05-12] MEDS ORDERED: Albuterol 2.5 MG/3 ML NEB.SOL* (0.083%) INH PRN (01:24)
[2018-05-12] MEDS: Insulin LISPRO* 1 UNITS UNIT SUBCUT SCH ×2 (02:31→05:43)
[2018-05-12] MEDS ORDERED: Melatonin 3 MG TAB PO PRN (02:40)
[2018-05-12] MEDS ORDERED: Levothyroxine TAB* 50 MCG TAB PO SCH (06:00)
[2018-05-12] MEDS ORDERED: BASAGLAR INSULIN SUBCUT SCH (09:00)
[2018-05-12] MEDS ORDERED: Topiramate TAB(*) 100 MG PO SCH ×2 (09:00→18:00)
[2018-05-12] MEDS ORDERED: Fluticasone/Vilanterol MDI(NF) 100/25 MDI INH SCH (09:00)
[2018-05-12] MEDS ORDERED: BuPROPion XL* 300 MG TAB.XL PO SCH (09:00)
[2018-05-12] MEDS ORDERED: Atorvastatin* 40 MG TAB PO SCH (09:00)
[2018-05-12] MEDS ORDERED: PROCHLORPERAZINE INJ 5 MG/ML 2 ML VIAL IV PRN (09:17)
[2018-05-12] MEDS ORDERED: Ketorolac INJ* 30 MG/ML 1 ML VIAL IV PUSH PRN (09:17)
[2018-05-12] MEDS: PTO:Insulin ASPART (NF) 100 UNIT/ML VIAL SUBCUT SCH ×2 (10:08→13:25)
[2018-05-12 12:18] VITALS: BP 125/74
--- NOTE | 2018-05-12 12:42 | RAD ---
HISTORY: chest pain, shortness of breath, diabetes, hypertension and hyperlipidemia, obesity COMPARISONS: None TECHNIQUE: A 1 day stress/rest myocardial perfusion study was performed, with pharmacologic stress. The stress portion was monitored by Dr. Mata. Gated SPECT imaging was performed, with CT-based attenuation correction DOSE: Stress: Technetium 99m tetrofosmin, 25.7 millicuries, injected at 11:50 AM on May 12, 2018 Rest: Technetium 99m tetrofosmin, 10.6 millicuries, injected at 6:50 AM on May 12, 2018 Pharmacologic agent: Lexiscan FINDINGS: CARDIAC MONITORING: Noncontributory EF: 62% TID: 0.95 MOTION: Normal motion, with normal wall thickening. PERFUSION: There are no fixed or reversible perfusion defects. OTHER: None IMPRESSION: NO FIXED OR REVERSIBLE PERFUSION DEFECTS. ASSESSMENT: LOW RISK. Based on imaging criteria from ACC/AHA 2002. Guideline Update for the Management of Patient's with Chronic Stable Angina, table 23. Noninvasive Risk Stratification.
[2018-05-12] MEDS ORDERED: Regadenoson* 0.4 MG/5 ML SYRINGE ONE (13:27)
[2018-05-12] MEDS ORDERED: Lurasidone(*) 120 MG TAB PO SCH (18:00)
[2018-05-12] MEDS ORDERED: Montelukast Sodium TAB* 10 MG PO SCH (18:00)
[2018-05-12] MEDS ORDERED: Mirtazapine TAB* 15 MG PO SCH (21:00)
[2018-05-12] MEDS ORDERED: Insulin GLARGINE(*) 1 UNITS UNIT SUBCUT SCH (21:00)
[2018-05-12] MEDS ORDERED: Norethindrone (NF) 0.35 MG TAB PO SCH (21:00)
--- NOTE | 2018-05-13 06:07 | DS ---
CC: Dr. Tse* DISCHARGE SUMMARY: DATE OF ADMISSION: 05/11/18. DATE OF DISCHARGE: 05/12/18. PRIMARY CARE PROVIDER: Karen Tse M.D. MY ATTENDING WHILE IN THE HOSPITAL: Dr. Jose Miguel Appiah.* (DICTATED BY FRANTZ SÁNCHEZ) PRIMARY DISCHARGE DIAGNOSES: Chest pain, migraines, gastroesophageal reflux disease. SECONDARY DISCHARGE DIAGNOSES: Diabetes mellitus type 2, asthma, hypertension, hypothyroidism, iron-deficiency anemia, posttraumatic stress disorder, panic disorder, diverticulosis. STUDIES DONE WHILE IN THE HOSPITAL: Chest x-ray from 05/11/18, shows cardiomegaly without evidence for pulmonary edema, no acute cardiopulmonary process evident. Electrocardiogram on 05/11/18, read as normal sinus rhythm, no ST segment elevation. Left axis deviation. No hypertrophy enlargement, no other abnormalities, consistent with previous exam. Nuclear medicine scan from 05/12/18, read as no fixed or reversible perfusion defects, EF 62%, normal wall motion, normal wall thickening, low-risk based on imaging criteria from ACC/AHA 2002 guideline update from management of the patient's chronic stable angina, noninvasive risk stratification. MEDICATIONS AT DISCHARGE: 1. Norethindrone 0.35 mg p.o. bedtime. 2. Meclizine 25 mg p.o. t.i.d. as needed. 3. Mirena IUD 20 mcg/24 hours. 4. Valacyclovir 500 mg p.o. daily as needed. 5. Topamax 100 mg p.o. q.a.m. 6. Imitrex 6 mg subcutaneous bi-weekly. 7. Insulin glargine 30 units subcutaneous b.i.d. 8. Insulin aspart 30 units subcutaneous sliding scale with meals. 9. Clonazepam 1 mg p.o. t.i.d. as needed. 10. Breo Ellipta 1 puff inhalation daily. 11. Wellbutrin 300 mg p.o. q.a.m. 12. Singulair 10 mg p.o. q.p.m. 13. Lipitor 40 mg p.o. daily. 14. Albuterol 2 puffs inhalation q.4 hours as needed. 15. Albuterol nebulizer 2.5 mg q.4 hours as needed. 16. Benadryl 25 mg p.o. daily as needed. 17. Nasacort 1 puff both nares daily. 18. EpiPen 0.1 mg IM once as needed. 19. Zyrtec 10 mg p.o. at bedtime. 20. Biotin 2.5 mg 1 tab p.o. daily. 21. Ascorbic acid 1000 mg p.o. daily with meals. 22. Folic acid 1 mg p.o. daily. 23. Vitamin B12 1000 mcg p.o. daily. 24. Vitamin D 2000 units p.o. daily. 25. Mirtazapine 45 mg p.o. daily. 26. Melatonin 20 mg p.o. bedtime. 27. Levothyroxine 50 mcg p.o. q.a.m. HOSPITAL COURSE: This is a brief summary of the patient's presentation. For more details, please see the history and physical from Dr. Rustam Mcgee on 05/12/18. In brief, the patient is a 42-year-old female with past medical history significant for the above, who presented to the emergency department after having a migraine with associated chest pressure radiating onto her right arm with mild shortness of breath. The patient took Tums, which did not help. The patient's chest pain persisted while she was in the hospital. She had troponins, which are negative. The patient had a stress test in 2012, which was normal. The patient is morbidly obese and had a gastric bypass. The patient has daily migraines, takes Imitrex twice a week, is on prophylactic Topamax and Botox injections, and has been evaluated for chronic iron-deficiency anemia through her cost manager before and has had frequent intractable symptoms related to gastroesophageal reflux. The patient was admitted to the hospital with n.p.o. after midnight and had a nuclear medicine stress test read as above , showing low risk. The patient's chest pain resolved on its own without any identifiable intervention causing this. The patient received aspirin in the emergency department. The patient had 2 migraines while in the hospital, both of which resolved with Compazine and Toradol. The patient on 05/12/18, was amenable for and stable for discharge. The patient believes that this pain was due to her reflux, as it has a similar quality and placement of as when this had previously happened. PHYSICAL EXAMINATION ON DAY OF DISCHARGE: General: The patient is a 42-year- old female, who appears stated age and sitting comfortably in bed, in no acute distress. HEENT: Head: Normocephalic, atraumatic. Sclerae are anicteric. No conjunctival injection. Nasal mucosa moist. Oral mucosa moist. No pharyngeal erythema, discharge or exudate. Neck: Supple, nontender. No lymphadenopathy. No carotid bruit auscultated. No JVD. No muscle tenderness or tenderness to palpation over the posterior cervical muscles. Cardiac: Regular rate and rhythm. No clicks, murmurs, gallops, or rubs. Pulses are 2+ bilaterally in dorsalis pedis, posterior tibialis, and radial areas. No bilateral lower extremity edema noted. No calf tenderness. Respiratory: Clear to auscultation bilaterally. No wheezes, rales, or rhonchi. Good air exchange bilaterally. Abdomen: Soft, nontender, nondistended. Bowel sounds present, normoactive in all 4 quadrants. No hepatosplenomegaly. No abdominal bruits auscultated. No hepatojugular reflux. Genitourinary: No suprapubic or CVA tenderness. Skin: Clean, dry, and intact. No rash. Neurologic: Cranial nerves II through XII intact. No focal deficits. Alert and oriented x3. Psychiatric: Pleasant and cooperative. LABORATORY DATA: White blood cell count 7.2, hemoglobin 12.8, hematocrit 38, platelet count 234. Sodium 138, potassium 4.1, chloride 107, carbon dioxide 26 , anion gap 5, BUN 13, creatinine 0.64, glucose 115, lactic acid 0.8, calcium 8.9, bilirubin 0.3, AST 55, ALT 78, alkaline phosphatase 173, troponin I 0.00, total protein 7.0, albumin 3.6, globulin 3.4. DISCHARGE PLAN: The patient will be discharged to home. The patient follows with several specialists for her various medical conditions, which she continues to follow including with her neurologist for discussed continued prophylactic treatment for her migraines. Given the patient's low-risk stress test, there is no indication to stop her Imitrex. The patient should also follow with her cost manager for further assessment of her iron- deficiency anemia, which appears to have resolved as of 02/15/18, but the workup for chronic GI bleed should be continued per the discretion of a cost manager. The patient had an elevated LDL cholesterol on 02/20/18. The patient will continue on statin therapy without changing of the dose. The patient will be continued on her insulin therapy. This should be adjusted as needed with her outpatient provider. The patient had mildly elevated liver enzymes while in the hospital. This is the first time when this has been found with inpatient's lab work. The patient should have a repeat in 1 week to assess for hepatitis. The patient had no tenderness to palpation or other signs of gallbladder disease. The patient is at high risk for nonalcoholic steatohepatitis due to her weight and ultrasound of the liver should be considered with the elastography. The patient should discuss with the cost manager as well as the primary care doctor, prophylactic medication for her GERD; however, she states that the PPI therapy has been tried in the past and exacerbates the pain related to her current therapy given the intensity of the patient's pain, evaluation for other condition such as esophageal dysmotility should be considered. The patient should return to the hospital for alarming symptoms such as recurrent persistent chest pain, shortness of breath, syncope, bloody stools or other alarming symptoms. The patient should have a consistent- carbohydrate diet. TIME SPENT: Approximately, 60 minutes was spent on this discharge, 30 minutes of which was spent [id number] with the patient, obtaining history and physical and discussing treatment plan. FRANTZ SÁNCHEZ [id number]/[facility] #: [id number] MTDCora
== END 2018-05-12 14:11 | disposition home or self-care (01) ==
LOC: ED 18:02 → MEDTELE 05-12 01:20
PROVIDERS: ADMIT Hospitalist; ATTEND Hospitalist
DX: R07.9 Chest pain, unspecified (principal); G43.909 Migraine, unspecified, not intractable, without status migrainosus; K21.9 Gastro-esophageal reflux disease without esophagitis; E11.9 Type 2 diabetes mellitus without complications; J45.909 Unspecified asthma, uncomplicated; I10 Essential (primary) hypertension; E03.9 Hypothyroidism, unspecified; D50.8 Other iron deficiency anemias; F43.10 Post-traumatic stress disorder, unspecified; K57.90 Diverticulosis of intestine, part unspecified, without perforation or abscess without bleeding
CPT/HCPCS: 36415; 71045; 78452; 80053; 83605; 84484; 85025; 93005; 93017; 99283; A9270-GY; A9502; G0378; J0780; J1100; J1885; J2785

== ENCOUNTER 2018-12-01 13:55 | Observation (INO) | payer MEDICAID, MEDICARE ==
--- NOTE | 2018-12-01 14:28 | ED ---
Skin Complaint - HPI Summary HPI Summary: This patient is a 42 year old F presenting to [facility] with a chief complaint of erythema on her right leg 2 days ago. She states it started 2 days ago and progressively got worse. Her PCP told her to come here to get evaluated for cellulitis. She states it had a sudden onset and that it started with pain and erythema simultaneously. She says she had a low grade count at the PCP with a 100.8 degree F temp. She says this has since resolved. She rates her pain 10/10 in severity. - History of Current Complaint Chief Complaint: EDRashSkinAbscess Time Seen by Provider: 12/01/18 14:20 Stated Complaint: FEVER/RIGHT LEG PAIN Hx Obtained From: Patient Onset/Duration: Started Days Ago Timing: Constant Onset Severity: Severe Current Severity: Severe Pain Intensity: 10 Pain Scale Used: 0-10 Numeric Skin Location: Discrete - RLE Character: Swelling, Redness Associated Signs & Symptoms: Fever - Additional Pertinent History Primary Care Physician: ARJUN - Allergy/Home Medications Allergies/Adverse Reactions: Allergies Allergy/AdvReac Type Severity Reaction Status Date / Time Adhesive Tape Allergy Mild SKIN TEARS Verified 04/06/18 18:16 & RASH hydromorphone Allergy Hives Verified 04/06/18 18:16 lactose Allergy GI Upset Verified 12/01/18 14:03 loperamide Allergy Heartburn Verified 04/06/18 18:17 kaela Allergy Hives Verified 12/01/18 14:03 metoclopramide [From Reglan] Allergy Anxiety Verified 04/06/18 18:16 morphine Allergy Pain Verified 04/06/18 18:16 Home Medications: Home Medications Acetaminophen TAB* [Tylenol TAB*] 650 mg PO DAILY PRN 12/01/18 [History Confirmed 12/01/18] Calcium Carbonate [Tums Extra Strength 750] 750 mg PO DAILY PRN 12/01/18 [ History Confirmed 12/01/18] Dextran 70/Hypromellose [Genteal Tears 0.1%-0.3% Drop] 1 drop OPHTHALMIC DAILY 12/01/18 [History Confirmed 12/01/18] Glucagon,Human Recombinant [Glucagon Emergency Kit] 1 mg INJ ONCE PRN 12/01/18 [ History Confirmed 12/01/18] Insulin Glargine,Hum.rec.anlog [Basaglar Kwikpen U-100] 14 unit SUBCUT QPM 12/01 [History Confirmed 12/01/18] Insulin Glargine,Hum.rec.anlog [Terrellaglgermán Tavarespen] 30 unit SUBCUT QAM 12/01/18 [ History Confirmed 12/01/18] Lactase Enzyme (NF) [Lactase Enzyme] 3,000 unit PO DAILY 12/01/18 [History Confirmed 12/01/18] Levonorgestrel (IUD) (NF) [Mirena (NF)] 20 mcg IU ONCE 12/01/18 [History Confirmed 12/01/18] oxyCODONE/Acetamin 5/325 MG* [Percocet 5/325 TAB*] 1 tab PO Q4H PRN 12/01/18 [ History Confirmed 12/01/18] PMH/Surg Hx/FS Hx/Imm Hx Endocrine/Hematology History: Reports: Hx Diabetes, Hx Thyroid Disease - hypothyrodism, Hx Anemia Cardiovascular History: Reports: Hx Angina, Hx Hypercholesterolemia, Hx Hypertension, Other Cardiovascular Problems/Disorders - low Hb Denies: Hx Congestive Heart Failure, Hx Coronary Artery Disease, Hx Myocardial Infarction, Hx Pacemaker/ICD, Hx Valvular Heart Disease Respiratory History: Reports: Hx Asthma, Hx Sleep Apnea - cpap at home GI History: Reports: Hx Diverticulosis, Hx Gastrointestinal Bleed, Other GI Disorders - Hernia History: Reports: Hx Renal Disease - chronic renal insuffiency, Other Problems/Disorders - chronic renal insuff Sensory History: Reports: Hx Contacts or Glasses Denies: Hx Cataracts, Hx Hearing Aid Opthamlomology History: Reports: Hx Contacts or Glasses Denies: Hx Cataracts Neurological History: Reports: Hx Migraine, Other Neuro Impairments/Disorders - vertigo Psychiatric History: Reports: Hx Anxiety, Hx Depression, Hx Panic Disorder - treated with medication for anxiety, Hx Bipolar Disorder - Cancer History Hx Chemotherapy: No Hx Radiation Therapy: No - Surgical History Surgery Procedure, Year, and Place: 1997 D&C, 1997 lanced bartholin gland cyst, 2007 gastric bypass surgery, 2008 cholecystectomy, 2012 R hernias repair, 2012 angiogram, no blockages found. Colonoscopy and endoscopy 04/04/18 - Immunization History Date of Tetanus Vaccine: unk Date of Influenza Vaccine: unk Infectious Disease History: No Infectious Disease History: Denies: Hx Clostridium Difficile, Hx Hepatitis, Hx of Known/Suspected MRSA, Hx Shingles, Hx Tuberculosis, Traveled Outside the [place] in Last 30 Days - Family History Known Family History: Positive: Hypertension, Other - ID - Social History Alcohol Use: Occasionally Hx Substance Use: No Substance Use Type: Reports: None Hx Tobacco Use: Yes Smoking Status (MU): Current Some Day Smoker Type: eCigevanses Review of Systems Positive: Fever - Resolved Positive: Rash - Errythema with swelling on RLE All Other Systems Reviewed And Are Negative: Yes Physical Exam - Summary Physical Exam Summary: VITAL SIGNS: Reviewed. GENERAL: Patient is a well-developed and nourished FEMALE who is lying comfortable in the stretcher. Patient is not in any acute respiratory distress. HEAD AND FACE: No signs of trauma. No ecchymosis, hematomas or skull depressions. No sinus tenderness. EYES: PERRLA, EOMI x 2, No injected conjunctiva, no nystagmus. EARS: Hearing grossly intact. Ear canals and tympanic membranes are within normal limits. MOUTH: Oropharynx within normal limits. NECK: Supple, trachea is midline, no adenopathy, no JVD, no carotid bruit, no c- spine tenderness, neck with full ROM. CHEST: Symmetric, no tenderness at palpation LUNGS: Clear to auscultation bilaterally. No wheezing or crackles. CVS: Regular rate and rhythm, S1 and S2 present, no murmurs or gallops appreciated. ABDOMEN: Soft, non-tender. No signs of distention. No rebound no guarding, and no masses palpated. Bowel sounds are normal. EXTREMITIES: FROM in all major joints, no edema, no cyanosis or clubbing. NEURO: Alert and oriented x 3. No acute neurological deficits. Speech is normal and follows commands. SKIN: Dry and warm. On RLE, swelling and erythema from the knee down to the ankle. Triage Information Reviewed: Yes Vital Signs On Initial Exam: Initial Vitals Temp Pulse Resp BP Pulse Ox 98 F 92 20 126/93 97 12/01/18 14:00 12/01/18 14:00 12/01/18 14:00 12/01/18 14:00 12/01/18 14:00 Vital Signs Reviewed: Yes Diagnostics - Vital Signs Vital Signs Temp Pulse Resp BP Pulse Ox 12/01/18 14:00 98 F 92 20 126/93 97 - Laboratory Result Diagrams: 12/01/18 15:09 12/01/18 15:03 Lab Statement: Any lab studies that have been ordered have been reviewed, and results considered in the medical decision making process. - Ultrasound No standard instances Ultrasound Interpretation Completed By: Radiologist Summary of Ultrasound Findings: Venous Doppler Study Lower EXT Veins Right: No evidence of DVT is identified. ED Provider has reviewed this report. Re-Evaluation - Re-Evaluation First Eval Re-Evaluation Time: 17:03 Comment: Discussed plan for admission with patient. Course/Dx - Course Assessment/Plan: Blood work without any significant abnormality except for glucose of 108, CRP of 57.4. Ultrasound of the right lower extremity is negative for DVT. In the ED course the patient was given IV fluids and the patient was started on Rocephin. The patient reports that she had fever and rigors last night therefore believe that the patient may benefit of an antibiotic since the patient has history of diabetes. Therefore discussed my physical exam and findings with Dr. Leyva from the hospital services was accepted the patient for admission. Patient is hemodynamically stable alert and oriented 3. - Differential Diagnoses - Skin Complaint Differential Diagnoses: Cellulitis, Contact Dermatitis, Drug Rash - Diagnoses Provider Diagnoses: Cellulitis - Physician Notifications Discussed Care Of Patient With: Anthony Leyva - Hospitalist Instructed by Provider To: Admit As Inpatient Discharge - Sign-Out/Discharge Documenting (check all that apply): Patient Departure - Admit Patient Received Moderate/Deep Sedation with Procedure: No - Discharge Plan Condition: Stable Disposition: ADMITTED TO [facility] - Billing Disposition and Condition Condition: STABLE Disposition: Admitted to [facility] - Attestation Statements Document Initiated by Donnie: Yes Documenting Scribe: Jose Miguel Chavez Provider For Whom Donnie is Documenting (Include Credential): Silas Chacon MD Scribe Attestation: Jose Miguel Rodriguez scribed for Silas Chacon MD on 12/02/18 at 0835. Scribe Documentation Reviewed: Yes Provider Attestation: The documentation as recorded by the Jose Miguel neri accurately reflects the service I personally performed and the decisions made by me, Silas Chacon MD Status of Scribe Document: Viewed
[2018-12-01 15:20] LABS: ABS Basophils 0 10^3/ul (0-0.2); ABS Eosinophils 0.1 10^3/ul (0-0.6); ABS Lymphocytes 2.1 10^3/ul (1.0-4.8); ABS Monocytes 0.9 10^3/ul (0-0.8); ABS Neutrophils 4.8 10^3/ul (1.5-7.7); ABS Nucleated RBC 0 10^3/ul; Eosinophil % 1.4 %; Hematocrit 38 % (35-47); Hemoglobin 12.4 g/dl (12.0-16.0); Lymphocyte % 26.7 %; Mean Corpuscular HGB Conc 33 g/dl (31-36); Mean Corpuscular Hemoglobin 29 pg (27-31); Mean Corpuscular Volume 90 fL (80-97); Mean Platelet Volume 7.7 fL (7.4-10.4); Nucleated Red Blood Cells % 0.1; Platelet Count 213 10^3/ul (150-450); Red Blood Count 4.25 10^6/ul (4.00-5.40); Red Cell Distribution Width 14 % (10.5-15)
[2018-12-01] MEDS ORDERED: cefTRIAXone(*) 1 GM in NS 0.9% 50 ML* 50 ML IVPB ONE (15:36)
[2018-12-01 15:37] LABS: Albumin 3.9 g/dL (3.2-5.2); Albumin/Globulin Ratio 1.1 (1-3); BUN/Creatinine Ratio 13.9 (8-20); Calcium 8.7 mg/dL (8.6-10.3); EGFR African American 107.5 (>60); EGFR Non-African American 88.8 (>60); Globulin 3.4 g/dL (2-4); Potassium 3.6 mmol/L (3.5-5.0); Total Bilirubin 0.4 mg/dL (0.2-1.0); Total Protein 7.3 g/dL (6.4-8.9)
[2018-12-01 16:00] LABS: Urine Appearance Clear; Urine Bacteria 1+ (Absent); Urine Bilirubin Negative (Negative); Urine Blood 1+ (Negative); Urine Color Yellow; Urine Glucose 1+(50 mg/dL) (Negative); Urine Ketones Negative (Negative); Urine Nitrite Negative (Negative); Urine Protein 1+(30 mg/dL) (Negative); Urine Red Blood Cell 1+(3-5/hpf) (Absent); Urine Specific Gravity 1.027 (1.010-1.030); Urine Squamous Epithelial Cell Present (Absent); Urine Urobilinogen Positive (Negative); Urine White Blood Cell 1+(6-10/hpf) (Absent)
[2018-12-01] MEDS ORDERED: oxyCODONE TAB* 5 MG TAB PO ONE (16:11)
[2018-12-01 16:39] LABS: C Reactive Protein 57.4 mg/L (<8.01); Uric Acid 3.2 mg/dL (2.3-6.6)
[2018-12-01 16:39] LABS: Erythrocyte Sed Rate 54 mm/Hr (0-14)
[2018-12-01] MEDS ORDERED: Meclizine TAB* 12.5 MG PO PRN (17:59)
[2018-12-01] MEDS ORDERED: Albuterol HFA INHALER* 8 gm MDI INH PRN (17:59)
[2018-12-01] MEDS ORDERED: ValACYclovir (*) 500 MG TAB PO PRN (17:59)
[2018-12-01] MEDS ORDERED: diPHENhydraMINE PO* 25 MG PO PRN (18:04)
[2018-12-01] MEDS ORDERED: Acetaminophen TAB* 325 MG PO PRN (18:09)
[2018-12-01] MEDS ORDERED: Dextrose 50% Syringe 50 ML* 25 GM/50 ML SYRINGE IV PUSH PRN ×2 (18:15→18:16)
[2018-12-01] MEDS ORDERED: Insulin LISPRO* 1 UNITS UNIT SUBCUT SCH ×2 (18:30→21:00)
[2018-12-01] MEDS ORDERED: Montelukast Sodium TAB* 10 MG PO SCH (19:30)
--- NOTE | 2018-12-01 21:11 | HP ---
HISTORY AND PHYSICAL: DATE OF ADMISSION: 12/01/18 PRIMARY CARE PROVIDER: Fareed Guerrier. ADMITTING PHYSICIAN: Anthony Leyva MD. CHIEF COMPLAINT: Right calf pain, itching, erythema. HISTORY OF PRESENT ILLNESS: Sylvie Johnson is a 42-year-old female with past medical history of type 1 diabetes, asthma, hypothyroidism, insomnia, migraines , GERD, bipolar type 2, obstructive sleep apnea, PTSD, vertigo, frequent yeast infections who 2 days prior to admission was feeling very lethargic, had elevated blood sugars, and her calf felt tight and itchy. The day prior to admission, developed a rash on the right anterior calf and blood sugars continued to worsen. She developed fevers, chills, and was shivering the night prior to her admission. She was able to follow up with her PCP, Dr. Frazier , who was concerned that she needed to rule out DVT and was sent to the emergency room for further evaluation. She has received ceftriaxone here, had an elevated CRP of 57, ESR of 54, and because of the clinical concern for potential rigoring at home, was referred to the hospitalist service for admission. She notably denies any new medications other than on 11/02/18, she had her first migraine headache nerve block up in [place] in the head and neck and had her additional treatment yesterday, day prior to admission. She denies any cough, chest pain, abdominal pain. She has chronic urinary incontinence and urinalysis here did show positive leukocyte esterase 1+, 1+ bacteria. She had an episode 2 weeks ago where her right kidney was a little bit tender and that resolved on its own. She had a venous duplex of the right lower extremity, which showed no evidence of DVT. PAST MEDICAL HISTORY: 1. Type 1 diabetic. 2. Iron deficiency anemia. 3. Allergic rhinitis. 4. Panic disorder. 5. Exercise-induced asthma. 6. B12 deficiency. 7. Bipolar disorder type 2. 8. Diabetic nephropathy. 9. Dysfunctional uterine bleeding. 10. GERD. 11. Headache disorder with migraines. 12. Herpes simplex infection. 13. Hypothyroidism. 14. Insomnia. 15. Nightmares. 16. Obstructive sleep apnea, on CPAP. 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 18. PTSD. 19. Social anxiety. 20. Vertigo. 21. Vitamin D deficiency. 22. Frequent yeast infections. MEDICATIONS: Include: 1. Basaglar 30 units in the a.m., 14 units in the p.m. 2. Valacyclovir 500 mg p.o. b.i.d. p.r.n. 3. Topamax 100 mg in the a.m., 150 mg in the p.m. 4. Sumatriptan subcu 6 mg p.r.n. 5. Percocet 1 tab p.o. q.4 hours p.r.n., 5 mg/325 mg tablets. 6. Norethindrone 0.3 mg p.o. at bedtime. 7. Theragran multivitamin 1 tab p.o. daily. 8. Singulair 10 mg p.o. q.p.m. 9. Remeron 45 mg p.o. at bedtime. 10. Meclizine 25 mg p.o. t.i.d. p.r.n. 11. Latuda 120 mg p.o. q.p.m. 12. Levothyroxine 50 mcg p.o. daily. 13. Mirena IUD 20 mcg intrauterine daily. 14. Lactase enzyme 3000 units p.o. daily. 15. Bariatric multivitamin with iron p.o. daily. 16. Aspart insulin 1 to 10 per carb and 2 units for every 50 above 125. 17. Breo Ellipta MDI 1 puff inhaled daily. 18. Klonopin 1 mg p.o. t.i.d. p.r.n. 19. Genteel Tears 0.1% to 0.3% drops daily. 20. Tums 750 mg p.o. daily p.r.n. 21. Bupropion 300 mg p.o. q.a.m. 22. Ventolin 2 puffs inhaled q.4 hours p.r.n. 23. Acetaminophen 650 mg p.o. daily p.r.n. ALLERGIES: Include adhesive tape, HYDROMORPHONE (anaphylactic shock), lactose ( GI upset), loperamide (heartburn), kaela (hives), REGLAN (anxiety); MORPHINE ( pain). SOCIAL HISTORY: Patient is on disability since 2014. She is a former smoker between 1995 and 2007 of one-half pack per day. Drinks alcohol twice a year. Denies any drug use. Medical surrogate is sister, Amee Wynn, and aunt, Nancy Villalobos. FAMILY HISTORY: Mother with hypothyroidism, asthma, hyperlipidemia. Father in 2011 from a massive myocardial infarction; he had prostate cancer , depression, hypertension. REVIEW OF SYSTEMS: Complete 14-point review of systems is negative, except as per HPI. PHYSICAL EXAMINATION GENERAL APPEARANCE: No acute distress. VITAL SIGNS: Temperature 98, pulse rate 92, respiratory rate 20, oxygen sat 97% , blood pressure 126/93. HEENT: Normocephalic, atraumatic. Pupils are equal, round, and reactive to light. Extraocular motions are intact. No scleral icterus. LUNGS: Clear to auscultation, except for some rales at the left lower base. CARDIAC: Regular rate and rhythm. No murmurs, rubs, or gallops. ABDOMEN: Soft, nontender, nondistended. Obese. EXTREMITIES: Warm, well perfused. Right circumferential calf with erythema, warmth, maculopapules overlying the erythema, some pruritus. No fluctuance. Trace edema compared to the left. NEURO: Cranial nerves II through XII intact. Moving all extremities. DIAGNOSTIC STUDIES/LAB DATA: Laboratory Data: White count 8.0, hemoglobin 12.4, hematocrit 38, platelets 213. Sodium 139, potassium 3.6, chloride 107, BUN 10, creatinine 0.72, glucose 99. AST 14, ALT 14, CRP 57, alk phos 136. Urinalysis: 1+ blood, 1+ protein, positive urobilinogen, 1+ leukocyte esterase, 1+ wbc, 1+ rbc, 1+ bacteria, 1+ glucose. Negative ketones. Imaging: Duplex Doppler as above with no evidence of right lower extremity DVT. ASSESSMENT AND PLAN: Sylvie Johnson is a 42-year-old female with type 1 diabetic with multiple medical comorbidities, her last A1c was 9.0 two months ago, presenting with right lower extremity cellulitis and concern for rigoring at home with followup blood cultures status post ceftriaxone at home. She is afebrile here. Does not currently meet systemic inflammatory response syndrome criteria with only heart rate above 90, no leukocytosis. I suspect a short observation stay, could possibly go in the morning. We will put her on cefazolin. I have marked the area; it is not a purulent cellulitis. Otherwise , we are going to continue her home medications including her bupropion 300 mg q.a.m., Remeron 45 mg p.o. at night for her psychiatric disorders, her Topamax 100 in the a.m. and 150 mg p.o. q.p.m. for her headaches, Lantus 14 at night; 30 in the morning with sliding scale insulin and [id number] testing a.c. and at bedtime, her Klonopin 1 mg t.i.d. Put her on heparin for DVT prophylaxis. Continue her Latuda 120 mg p.o. q.a.m. She is to have a carbohydrate consistent diet. Continue her valacyclovir we have on formulary. Continue her Breo Ellipta for asthma, albuterol 2 puffs inhaled q.4 hours p.r.n. as well. Start Benadryl for her itching and levothyroxine 50 mcg p.o. q.a.m. for her hypothyroidism. Get CBC daily. I am going to get a chest x-ray given her rales at the left base. She is a full code. Medical surrogate is her sister, Amee Wynn, and aunt, Mary Villalobos. [id number]/CPS #: [id number] MTDD
[2018-12-01] MEDS: ceFAZolin 2 GM PREMIX in ORs 2 GM/50 ML BAG IVPB SCH (22:54)
[2018-12-01] MEDS: Insulin GLARGINE(*) 1 UNITS UNIT SUBCUT SCH (22:55)
[2018-12-01] MEDS: NORETHINDRONE 0.35 MG PO SCH (22:57)
[2018-12-01] MEDS: Mirtazapine TAB* 15 MG PO SCH (23:03)
[2018-12-01] MEDS: Topiramate TAB(*) 100 MG PO SCH (23:04)
[2018-12-01] MEDS: Lurasidone(*) 120 MG TAB PO SCH (23:04)
[2018-12-01] MEDS: oxyCODONE/Acetamin 5/325 MG* TAB PO PRN (23:52)
[2018-12-02] MEDS: ceFAZolin 2 GM PREMIX in ORs 2 GM/50 ML BAG IVPB SCH ×3 (05:24→20:45)
[2018-12-02] MEDS: Levothyroxine TAB* 50 MCG TAB PO SCH (06:22)
[2018-12-02] MEDS: Heparin VIAL(*) 5000 UNITS/ML VIAL (FIVE THOUSAND) SUBCUT SCH ×3 (06:26→20:07)
[2018-12-02] MEDS: NFT: Fluticasone/Vilanterol MDI(NF) 100/25 MDI INH SCH (07:59)
[2018-12-02] MEDS: Montelukast Sodium TAB* 10 MG PO SCH (08:59)
[2018-12-02] MEDS: Topiramate TAB(*) 100 MG PO SCH ×2 (08:59→18:49)
[2018-12-02] MEDS ORDERED: BuPROPion XL* 300 MG TAB.XL PO SCH ×2 (09:00→21:00)
[2018-12-02] MEDS: Insulin GLARGINE(*) 1 UNITS UNIT SUBCUT SCH ×2 (09:01→20:06)
[2018-12-02] MEDS: DEXTRAN 70 OPHTHALMIC SCH (09:03)
[2018-12-02] MEDS: HYPROMELLOSE OPHTHALMIC SCH (09:03)
[2018-12-02] MEDS: clonazePAM TAB(*) 1 MG PO PRN ×2 (09:13→13:52)
--- NOTE | 2018-12-02 09:29 | PN ---
Progress Note - Progress Note Date of Service: 12/02/18 Note: Patient has no pain in RLE. Had fevers at home, not in hospital. Lives alone, monitors her own FSBG 4-5x/day. Eating OK, no N/V. Selected Entries 12/02/18 03:21 Temperature 36.3 C Pulse Rate 66 Respiratory 19 Rate Blood Pressure 125/60 (mmHg) O2 Sat by Pulse 95 Oximetry Alert, no distress Lungs: clear Heart; RRR, no murmur Abdo: soft, NT, +BS Extrem: RT bustillos w/ variagated erythematous blotchy area across whole bustillos, mild warmth, tender. A/P: Cellulitis, responding well to IV cefazolin. Will likely discharge home on oral antibiotics today.
[2018-12-02] MEDS: oxyCODONE/Acetamin 5/325 MG* TAB PO PRN (19:20)
[2018-12-02] MEDS: Lurasidone(*) 120 MG TAB PO SCH (19:21)
[2018-12-02] MEDS: NORETHINDRONE 0.35 MG PO SCH (20:06)
[2018-12-02] MEDS: Mirtazapine TAB* 15 MG PO SCH (20:46)
[2018-12-02] MEDS ORDERED: Ondansetron INJ* 2 MG/ML VIAL IV SCH (21:00)
[2018-12-02] MEDS: Ondansetron INJ* 2 MG/ML VIAL IV PRN (21:11)
[2018-12-03] MEDS: ceFAZolin 2 GM PREMIX in ORs 2 GM/50 ML BAG IVPB SCH (05:23)
[2018-12-03 05:59] LABS: ABS Basophils 0 10^3/ul (0-0.2); ABS Eosinophils 0.3 10^3/ul (0-0.6); ABS Lymphocytes 2.2 10^3/ul (1.0-4.8); ABS Monocytes 0.7 10^3/ul (0-0.8); ABS Neutrophils 4.1 10^3/ul (1.5-7.7); ABS Nucleated RBC 0 10^3/ul; Eosinophil % 3.9 %; Hematocrit 36 % (35-47); Hemoglobin 11.8 g/dl (12.0-16.0); Lymphocyte % 30.3 %; Mean Corpuscular HGB Conc 33 g/dl (31-36); Mean Corpuscular Hemoglobin 29 pg (27-31); Mean Corpuscular Volume 90 fL (80-97); Mean Platelet Volume 7.7 fL (7.4-10.4); Nucleated Red Blood Cells % 0; Platelet Count 220 10^3/ul (150-450); Red Blood Count 4.04 10^6/ul (4.00-5.40); Red Cell Distribution Width 14 % (10.5-15); White Blood Count 7.3 10^3/ul (3.5-10.8)
[2018-12-03] MEDS: Heparin VIAL(*) 5000 UNITS/ML VIAL (FIVE THOUSAND) SUBCUT SCH (06:00)
[2018-12-03] MEDS: Levothyroxine TAB* 50 MCG TAB PO SCH (06:01)
[2018-12-03] MEDS: oxyCODONE/Acetamin 5/325 MG* TAB PO PRN ×2 (06:01→13:34)
[2018-12-03] MEDS: Ondansetron INJ* 2 MG/ML VIAL IV PRN ×3 (06:05→13:34)
[2018-12-03 06:18] LABS: BUN/Creatinine Ratio 17.2 (8-20); EGFR African American 86.4 (>60); EGFR Non-African American 71.4 (>60); Potassium 4.1 mmol/L (3.5-5.0)
[2018-12-03] MEDS: NFT: Fluticasone/Vilanterol MDI(NF) 100/25 MDI INH SCH (07:17)
--- NOTE | 2018-12-03 08:39 | PN ---
Subjective Date of Service: 12/03/18 Interval History: Patient refused discharge yesterday because she had a '6th sense' that it was wrong. This morning she is nauseated, and vomited once last night. She feels weak. RLE pain is intermittent, mild. Family History: Unchanged from Admission Social History: Unchanged from Admission Past Medical History: Unchanged from Admission Objective Active Medications: Acetaminophen (Tylenol Tab*) 650 mg PO DAILY PRN PRN Reason: PAIN Albuterol (Ventolin Hfa Inhaler*) 2 puff INH Q4H PRN PRN Reason: SOB/WHEEZING Bupropion HCl (Bupropion Xl*) 300 mg PO 2100 [facility] Last Admin: 12/02/18 20:46 Dose: 300 mg Clonazepam (Klonopin Tab(*)) 1 mg PO TID PRN PRN Reason: ANXIETY Last Admin: 12/02/18 13:52 Dose: 1 mg Dextrose (D50w Syringe 50 Ml*) 12.5 gm IV PUSH .FOR FS < 60 - SS PRN PRN Reason: FS < 60 Diphenhydramine HCl (Benadryl Po*) 25 mg PO Q6H PRN PRN Reason: ITCHING Last Admin: 12/01/18 18:24 Dose: 25 mg Fluticasone/Vilanterol (Breo Ellipta Mdi 100/25(Nf)) 1 puff INH DAILY [facility] Last Admin: 12/03/18 07:17 Dose: Not Given Heparin Sodium (Porcine) (Heparin Vial(*)) 5,000 units SUBCUT Q8HR [facility] Last Admin: 12/03/18 06:00 Dose: Not Given Cefazolin Sodium/Dextrose (Kefzol 2 Gm Premix In Ors(*)) 2 gm in 50 mls @ 100 mls/hr IVPB Q8H [facility] Last Admin: 12/03/18 05:23 Dose: 100 mls/hr Insulin Glargine (Lantus(*)) 14 units SUBCUT Q24H [facility] Last Admin: 12/02/18 20:06 Dose: Not Given Insulin Glargine (Lantus(*)) 30 units SUBCUT Q24H [facility] Last Admin: 12/02/18 09:01 Dose: Not Given Levothyroxine Sodium (Synthroid Tab*) 50 mcg PO DAILY@0600 [facility] Last Admin: 12/03/18 06:01 Dose: 50 mcg Lurasidone HCl (Latuda) 120 mg PO QPM [facility] Last Admin: 12/02/18 19:21 Dose: Not Given Meclizine HCl (Antivert Tab*) 25 mg PO TID PRN PRN Reason: NAUSEA Last Admin: 12/02/18 19:20 Dose: 25 mg Mirtazapine (Remeron Tab*) 45 mg PO BEDTIME [facility] Last Admin: 12/02/18 20:46 Dose: 45 mg Montelukast Sodium (Singulair Tab*) 10 mg PO DAILY [facility] Last Admin: 12/02/18 08:59 Dose: 10 mg Nft: Dextran 70/Hypromellose [ Genteal Tears 0.1%-0 .3% Drop] 1 Drop) 1 drop OPHTHALMIC DAILY [facility] Last Admin: 12/02/18 09:03 Dose: Not Given Norethindrone (Shweta (Nf)) 0.35 mg PO BEDTIME [facility] Last Admin: 12/02/18 20:06 Dose: Not Given Ondansetron HCl (Zofran Inj*) 4 mg IV Q4H PRN PRN Reason: NAUSEA Last Admin: 12/03/18 06:05 Dose: 4 mg Oxycodone/Acetaminophen (Percocet 5/325 Tab*) 1 tab PO Q4H PRN PRN Reason: PAIN - ABDOMINAL Last Admin: 12/03/18 06:01 Dose: 1 tab Topiramate (Topamax(*)) 100 mg PO QAM [facility] Last Admin: 12/02/18 08:59 Dose: 100 mg Topiramate (Topamax(*)) 150 mg PO QPM [facility] Last Admin: 12/02/18 18:49 Dose: 150 mg Valacyclovir HCl (Valtrex 500 Mg (*)) 500 mg PO BID PRN; Protocol PRN Reason: RASH Vital Signs - 8 hr 12/03/18 12/03/18 03:18 06:01 Temperature 36.6 C Pulse Rate 76 Respiratory 20 18 Rate Blood Pressure 129/63 (mmHg) O2 Sat by Pulse 98 Oximetry Oxygen Devices in Use Now: None Appearance: ambulatory, no distress Ears/Nose/Mouth/Throat: Clear Oropharnyx Neck: No Thyroid Enlargement, Masses Respiratory: Clear to Auscultation Cardiovascular: NL Sounds; No Murmurs; No JVD Extremities: - - erythema patchy, macular on RT bustillos Neurological: Alert and Oriented x 3 Lines/Tubes/Other Access: Clean, Dry and Intact Peripheral IV Nutrition: Taking PO's Result Diagrams: 12/03/18 05:46 12/03/18 05:46 Assess/Plan/Problems-Billing Assessment: 42 year old woman w/ type 1 diabetes, admitted w/ RLE cellulitis - Patient Problems (1) Cellulitis of right lower extremity without foot Current Visit: Yes Status: Acute Priority: High Code(s): L03.115 - CELLULITIS OF RIGHT LOWER LIMB SNOMED Code(s): 391360421 Comment: -Responding well to IV cephalosporin, ready for discharge on oral Keflex. (2) Type 1 diabetes mellitus Current Visit: Yes Status: Chronic Priority: Medium Comment: -Patient self -managing finger sticks and PRN insulin -Can continue the same pattern at home (3) Nausea & vomiting Current Visit: Yes Status: Acute Priority: Medium Code(s): R11.2 - NAUSEA WITH VOMITING, UNSPECIFIED SNOMED Code(s): 27437260 Comment: -May have diabetic gastroparesis -will treat w/ PRN zofran Status and Disposition: Will discuss discharge w/ case management
[2018-12-03] MEDS: Topiramate TAB(*) 100 MG PO SCH (08:48)
[2018-12-03] MEDS: Insulin GLARGINE(*) 1 UNITS UNIT SUBCUT SCH (08:48)
[2018-12-03] MEDS: clonazePAM TAB(*) 1 MG PO PRN (08:48)
[2018-12-03] MEDS: Montelukast Sodium TAB* 10 MG PO SCH (08:48)
[2018-12-03] MEDS: HYPROMELLOSE OPHTHALMIC SCH (08:49)
[2018-12-03] MEDS: DEXTRAN 70 OPHTHALMIC SCH (08:49)
[2018-12-03 11:10] VITALS: BP 110/56
--- NOTE | 2018-12-04 08:39 | DS ---
CONTINUATION ADDENDUM NOW INCLUDED ON THIS REPORT CC: Dr. Frazier at [facility].* DISCHARGE SUMMARY: DATE OF ADMISSION: 12/01/18 DATE OF DISCHARGE: 12/03/18 PRIMARY DIAGNOSIS: Right lower extremity cellulitis. SECONDARY DIAGNOSES: 1. Nausea and vomiting, possible diabetic gastroparesis. 2. Type 1 diabetes. 3. Iron-deficiency anemia. 4. Allergic rhinitis. 5. Panic disorder. 6. Exercise-induced asthma. 7. B12 deficiency. 8. Bipolar disorder type 2. 9. Diabetic nephropathy. 10. Dysfunctional uterine bleeding. 11. Gastroesophageal reflux disease. 12. Migraine headache. 13. Herpes simplex infection. 14. Hypothyroidism. 15. Insomnia. 16. Obstructive sleep apnea, on CPAP. 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 18. Posttraumatic stress disorder. 19. Social anxiety. 20. Vertigo. 21. Vitamin D deficiency. 22. Frequent yeast infections. HOSPITAL COURSE: The patient presented to the hospital with right leg swelling and erythema. Please see the history and physical for full details of the admission portion of this visit. The patient had a macular variegated erythematous rash on the anterior right bustillos. There was no associated fever or elevated white count. She did have tenderness and swelling in the right calf. She did have a lower extremity Duplex Doppler that showed no evidence of DVT in the right lower extremity. The patient was admitted and placed on IV cefazolin for cellulitis. She also had help elevating her right leg. The patient had improvement in the erythema and pain in the right leg. She was transitioned to oral cephalexin and discharged in good condition. She did have a delay of discharge due to not feeling strong enough to go home followed by some vomiting on the morning prior to discharge. The patient lives alone and has somewhat of a dependent personality. In the end, she accepted a prescription for oral Zofran for nausea and felt that she was safe to go home and take care of herself. For her type 1 diabetes which has been present since around age 5 or earlier, she manages her own fingersticks and her own dosing of mealtime insulin. Her blood sugars during the hospital stay that were recorded in the computer were 108 to 189 and we did not complete an A1c during this hospital stay. Only laboratory abnormalities were ESR of 54, alkaline phosphatase of 136, CRP of 57.4. Urinalysis showed protein in blood and some leukocyte esterase and white cells, but urine culture was negative, no growth. The blood cultures were also no growth to date. DISPOSITION: To home where she lives independently. ACTIVITY: As tolerated, and elevate the right leg. DIET: Diabetic diet. DISCHARGE SUMMARY: CONTINUATION ADDENDUM: DISCHARGE MEDICATIONS LIST: 1. Acetaminophen 650 mg p.o. b.i.d. p.r.n. pain. 2. Albuterol MDI 2 puffs q.4 hours p.r.n. wheezing. 3. Wellbutrin XL 300 mg p.o. q.a.m. 4. Calcium carbonate 750 mg p.o. t.i.d. p.r.n. 5. Klonopin 1 mg p.o. t.i.d. p.r.n. 6. Dextran/hypromellose eye drops daily. 7. Fluticasone-salmeterol 1 inhalation daily. 8. Glucagon 1 mg injection as needed for hypoglycemia. 9. NovoLog insulin 1 to 65 units subcutaneous before each meal sliding scale. 10. Insulin glargine 30 units subcutaneous in the morning and 14 units subcutaneous in the evening. 11. Lactate as needed. 12. Mirena IUD in place. 13. Synthroid 50 mcg p.o. q.a.m. 14. Latuda 120 mg p.o. q.p.m. 15. Meclizine 25 mg p.o. t.i.d. p.r.n. vertigo. 16. Mirtazapine 45 mg p.o. q.h.s. 17. Singulair 10 mg p.o. q.p.m. 18. Multivitamin 1 tab p.o. daily. 19. Norethindrone 0.35 mg p.o. q.p.m. 20. Sumatriptan 6 mg subcutaneous as needed for migraine. 21. Topamax 100 mg p.o. q.a.m. and 150 mg p.o. q.p.m. 22. Valtrex 500 mg p.o. b.i.d. 23. Cephalexin 500 mg p.o. t.i.d. for 6 days. 24. Ondansetron ODT 4 mg p.o. or sublingual q.6 hours p.r.n. nausea. 25. Oxycodone/acetaminophen 5/325 one tab p.o. q.4 hours p.r.n. pain. [id number]/[facility] #: [id number] Julee- [id number]/[facility] #: [id number] [facility]
--- NOTE | 2018-12-04 09:21 | DS ---
DISCHARGE SUMMARY: ADDENDUM: DISCHARGE MEDICATIONS LIST: 1. Acetaminophen 650 mg p.o. b.i.d. p.r.n. pain. 2. Albuterol MDI 2 puffs q.4 hours p.r.n. wheezing. 3. Wellbutrin XL 300 mg p.o. q.a.m. 4. Calcium carbonate 750 mg p.o. t.i.d. p.r.n. 5. Klonopin 1 mg p.o. t.i.d. p.r.n. 6. Dextran/hypromellose eye drops daily. 7. Fluticasone-salmeterol 1 inhalation daily. 8. Glucagon 1 mg injection as needed for hypoglycemia. 9. NovoLog insulin 1 to 65 units subcutaneous before each meal sliding scale. 10. Insulin glargine 30 units subcutaneous in the morning and 14 units subcutaneous in the evening. 11. Lactate as needed. 12. Mirena IUD in place. 13. Synthroid 50 mcg p.o. q.a.m. 14. Latuda 120 mg p.o. q.p.m. 15. Meclizine 25 mg p.o. t.i.d. p.r.n. vertigo. 16. Mirtazapine 45 mg p.o. q.h.s. 17. Singulair 10 mg p.o. q.p.m. 18. Multivitamin 1 tab p.o. daily. 19. Norethindrone 0.35 mg p.o. q.p.m. 20. Sumatriptan 6 mg subcutaneous as needed for migraine. 21. Topamax 100 mg p.o. q.a.m. and 150 mg p.o. q.p.m. 22. Valtrex 500 mg p.o. b.i.d. 23. Cephalexin 500 mg p.o. t.i.d. for 6 days. 24. Ondansetron ODT 4 mg p.o. or sublingual q.6 hours p.r.n. nausea. 25. Oxycodone/acetaminophen 5/325 one tab p.o. q.4 hours p.r.n. pain. [id number]/[facility] #: [id number] [facility]
== END 2018-12-03 14:30 | disposition home or self-care (01) ==
LOC: ED 13:55 → MED 17:54
PROVIDERS: ADMIT Internal Medicine; ATTEND Internal Medicine
DX: L03.115 Cellulitis of right lower limb (principal); E10.9 Type 1 diabetes mellitus without complications; R11.2 Nausea with vomiting, unspecified; D50.9 Iron deficiency anemia, unspecified; J30.9 Allergic rhinitis, unspecified; F41.0 Panic disorder [episodic paroxysmal anxiety]; R50.9 Fever, unspecified; R21 Rash and other nonspecific skin eruption; F17.210 Nicotine dependence, cigarettes, uncomplicated; J45.909 Unspecified asthma, uncomplicated; D51.9 Vitamin B12 deficiency anemia, unspecified; F31.81 Bipolar II disorder; E10.21 Type 1 diabetes mellitus with diabetic nephropathy; N93.8 Other specified abnormal uterine and vaginal bleeding; K21.9 Gastro-esophageal reflux disease without esophagitis; G43.909 Migraine, unspecified, not intractable, without status migrainosus; B00.9 Herpesviral infection, unspecified; E03.9 Hypothyroidism, unspecified; G47.00 Insomnia, unspecified; G47.33 Obstructive sleep apnea (adult) (pediatric); F43.10 Post-traumatic stress disorder, unspecified; F41.9 Anxiety disorder, unspecified; R42 Dizziness and giddiness
CPT/HCPCS: 36415; 80048; 80053; 81003; 81015; 83605; 84550; 85025; 85652; 86140; 87040; 87086; 94660; 99285; A9270-GY; G0378; J0690; J0696; J1644; J2405

== ENCOUNTER 2019-06-08 18:00 | Emergency (ER) | payer MEDICARE, MEDICAID ==
[2019-06-08] MEDS ORDERED: Hydrocodone/Acetamin 10/325 1 TAB PO ONE (18:22)
[2019-06-08] MEDS ORDERED: Ketorolac INJ* 30 MG/ML 1 ML VIAL IV PUSH ONE (18:22)
[2019-06-08] MEDS ORDERED: Ketorolac INJ* 30 MG/ML 1 ML VIAL IM ONE (18:25)
[2019-06-08] MEDS ORDERED: HYDROcodone/ACETAMIN 5-325 MG* 1 TAB PO ONE (19:05)
--- NOTE | 2019-06-08 19:20 | ED ---
GI/ HPI - HPI Summary HPI Summary: 43-year-old female presents with abdominal pain for the past days. States she is 10 days postop from a hysterectomy and bladder sling. She states that she was doing fine up until 2 days ago. States she did not excessively strain. Has not had a bowel movement 2 days. Did have a normal bowel movement before then. Denies any urinary symptoms. No fevers. No rash. He states the glue came off the area where incisions are made. Procedure was done laparoscopically. She has been taking hydrocodone without relief. patient claims can not have CT due to blood sugar monitor. - History of Current Complaint Chief Complaint: EDAbdPain Time Seen by Provider: 06/08/19 18:13 Stated Complaint: POST OPERATION PAIN PER EMS Pain Intensity: 10 - Additional Pertinent History Primary Care Physician: [id number] - Allergy/Home Medications Allergies/Adverse Reactions: Allergies Allergy/AdvReac Type Severity Reaction Status Date / Time Adhesive Tape Allergy Mild SKIN TEARS Verified 04/06/18 18:16 & RASH hydromorphone Allergy Hives Verified 04/06/18 18:16 lactose Allergy GI Upset Verified 12/01/18 14:03 loperamide Allergy Heartburn Verified 04/06/18 18:17 kaela Allergy Hives Verified 12/01/18 14:03 metoclopramide [From Reglan] Allergy Anxiety Verified 04/06/18 18:16 morphine Allergy Pain Verified 04/06/18 18:16 Home Medications: Home Medications Acetaminophen/Diphenhydramine [Qc Non-Aspirin Pm Caplet] 1 tab PO BEDTIME PRN [History Confirmed 06/08/19] Albuterol 2.5MG/3ML (0.083%)* [Ventolin 2.5 MG/3 ML NEB.OLIVIER*] 2.5 mg INH Q6HR PRN 06/08/19 [History Confirmed 06/08/19] Biotin 10,000 mcg PO QAM 06/08/19 [History Confirmed 06/08/19] Budesonide/Formote 160/4.5(NF) [Symbicort 160/4.5 (NF)] 1 puff INH BID 06/08/19 [History Confirmed 06/08/19] Cetirizine* [ZyrTEC 10 MG TAB*] 10 mg PO DAILY 06/08/19 [History Confirmed 06/08] Raghavendra's Restful Legs Pm 2 - 3 tab PO BEDTIME 06/08/19 [History Confirmed ] Hypromellose [Genteal Severe] 0.3 % OPHTHALMIC Q8HR PRN 06/08/19 [History Confirmed 06/08/19] LoraTADine TAB(NF) [Claritin 10 MG TAB(NF)] 10 mg PO DAILY 06/08/19 [History Confirmed 06/08/19] Meclizine TAB* [Antivert 12.5 TAB*] 25 mg PO TID PRN 06/08/19 [History Confirmed 06/08/19] Melatonin 20 mg PO BEDTIME 06/08/19 [History Confirmed 06/08/19] Onabotulinimtoxina 100 UNITS* [Botox 100 UNITS*] 100 units INJ .EVERY 12 WEEKS 06/08/19 [History Confirmed 06/08/19] Ondansetron ODT TAB* [Zofran 4 MG Odt TAB*] 4 mg PO BID PRN 06/08/19 [History Confirmed 06/08/19] Polyethylene Glycol 3350* [Miralax*] 17 gm PO BID 06/08/19 [History Confirmed ] SUMAtriptan SQ* [Imitrex SQ*] 6 mg SUBCUT DAILY PRN MDD 12 mg 06/08/19 [History Confirmed 06/08/19] Woman's Bariatric Complete 1 powder PO BID 06/08/19 [History Confirmed 06/08/19] clonazePAM TAB(*) [KlonoPIN TAB(*)] 1 mg PO QAM PRN 06/08/19 [History Confirmed 06/08/19] clonazePAM TAB(*) [KlonoPIN TAB(*)] 2 mg PO BEDTIME PRN 06/08/19 [History Confirmed 06/08/19] PMH/Surg Hx/FS Hx/Imm Hx Endocrine/Hematology History: Reports: Hx Diabetes, Hx Thyroid Disease - hypothyrodism, Hx Anemia Cardiovascular History: Reports: Hx Angina, Hx Hypercholesterolemia, Hx Hypertension, Other Cardiovascular Problems/Disorders - low Hb Denies: Hx Congestive Heart Failure, Hx Coronary Artery Disease, Hx Myocardial Infarction, Hx Pacemaker/ICD, Hx Valvular Heart Disease Respiratory History: Reports: Hx Asthma, Hx Sleep Apnea - cpap at home GI History: Reports: Hx Diverticulosis, Hx Gastrointestinal Bleed, Other GI Disorders - Hernia History: Reports: Hx Renal Disease - chronic renal insuffiency, Other Problems/Disorders - chronic renal insuff Sensory History: Reports: Hx Contacts or Glasses Denies: Hx Cataracts, Hx Hearing Aid Opthamlomology History: Reports: Hx Contacts or Glasses Denies: Hx Cataracts Neurological History: Reports: Hx Migraine, Other Neuro Impairments/Disorders - vertigo Psychiatric History: Reports: Hx Anxiety, Hx Depression, Hx Panic Disorder - treated with medication for anxiety, Hx Bipolar Disorder - Cancer History Hx Chemotherapy: No Hx Radiation Therapy: No - Surgical History Surgery Procedure, Year, and Place: 1997 D&C, 1997 lanced bartholin gland cyst, 2007 gastric bypass surgery, 2008 cholecystectomy, 2012 R hernias repair, 2012 angiogram, no blockages found. Colonoscopy and endoscopy 04/04/18 - Immunization History Date of Tetanus Vaccine: unk Date of Influenza Vaccine: unk Infectious Disease History: No Infectious Disease History: Denies: Hx Clostridium Difficile, Hx Hepatitis, Hx of Known/Suspected MRSA, Hx Shingles, Hx Tuberculosis, Traveled Outside the [place] in Last 30 Days - Family History Known Family History: Positive: Hypertension, Other - NC - Social History Alcohol Use: Occasionally Hx Substance Use: No Substance Use Type: Reports: None Hx Tobacco Use: Yes Smoking Status (MU): Current Some Day Smoker Type: eCigarettes Review of Systems Negative: Fever Negative: Chest Pain Negative: Shortness Of Breath Positive: Abdominal Pain, Nausea. Negative: Vomiting, Diarrhea All Other Systems Reviewed And Are Negative: Yes Physical Exam Triage Information Reviewed: Yes Vital Signs On Initial Exam: Initial Vitals Temp Pulse Resp BP Pulse Ox 97.7 F 69 18 168/94 97 06/08/19 18:08 06/08/19 18:08 06/08/19 18:08 06/08/19 18:08 06/08/19 18:08 Vital Signs Reviewed: Yes Appearance: Positive: Well-Appearing Skin: Positive: Warm, Dry, Other - healing incisions on abd, no evidence of cellulitis on exam Head/Face: Positive: Normal Head/Face Inspection Eyes: Positive: Normal, Conjunctiva Clear ENT: Positive: Pharynx normal Respiratory/Lung Sounds: Positive: Clear to Auscultation, Breath Sounds Present Cardiovascular: Positive: Normal, RRR Musculoskeletal: Positive: Normal Neurological: Positive: Normal Psychiatric: Positive: Normal Diagnostics - Vital Signs Vital Signs Temp Pulse Resp BP Pulse Ox 06/08/19 19:09 62 122/96 96 06/08/19 19:00 63 96 06/08/19 18:51 66 128/73 97 06/08/19 18:09 68 97 06/08/19 18:08 97.7 F 74 18 168/81 94 - Laboratory Result Diagrams: 06/08/19 19:17 06/08/19 19:17 Lab Statement: Any lab studies that have been ordered have been reviewed, and results considered in the medical decision making process. - Radiology abd Radiology Interpretation Completed By: ED Physician Summary of Radiographic Findings: stool throughout Re-Evaluation - Re-Evaluation First Eval Re-Evaluation Time: 20:42 Change: Improved GIGU Course/Dx - Course Course Of Treatment: 43-year-old female presents with abdominal pain for the past days. States she is 10 days postop from a hysterectomy and bladder sling. She states that she was doing fine up until 2 days ago. States she did not excessively strain. Has not had a bowel movement 2 days. Did have a normal bowel movement before then. Denies any urinary symptoms. No fevers. No rash. He states the glue came off the area where incisions are made. Procedure was done laparoscopically. She has been taking hydrocodone without relief. On exam tenderness lower abdomen. Lab work without significant abnormality. X- ray shows diffuse amount of stool. No free air. Gave 2 doses norco and feeling better. Discussed likely constipation causing her pain. Will place patient on Colace and patient states that colac causes diarrhea so will only have do Colace once a day. Told to follow up with surgeon. Gave short course of pain medication. Patient understands agrees with plan. - Diagnoses Differential Diagnoses - Female: Constipation, Colitis, Urinary Tract Infection Provider Diagnoses: Post-op pain, Constipation Discharge - Sign-Out/Discharge Documenting (check all that apply): Patient Departure Patient Received Moderate/Deep Sedation with Procedure: No - Discharge Plan Condition: Good Disposition: HOME Prescriptions: Docusate CAP* [Colace Cap*] 100 mg PO DAILY #10 cap HYDROcodone/ACETAMIN 5-325 MG* [[place] 5-325 TAB*] 2 tab PO Q6H PRN #20 tab MDD 8 PRN Reason: Pain - Severe Patient Education Materials: Constipation (ED) Referrals: Kaleigh Frazier MD [Primary Care Provider] - Additional Instructions: take colace once a day take norco up to two tablet every 6 hours for pain Follow up with surgeon Return to ED if develop fever or any new or worsening symptoms - Billing Disposition and Condition Condition: GOOD Disposition: Home
[2019-06-08 19:21] LABS: ABS Basophils 0.1 10^3/ul (0-0.2); ABS Eosinophils 0.3 10^3/ul (0-0.6); ABS Lymphocytes 2.2 10^3/ul (1.0-4.8); ABS Monocytes 0.5 10^3/ul (0-0.8); ABS Neutrophils 4.1 10^3/ul (1.5-7.7); Eosinophil % 4.7 %; Hematocrit 37 % (35-47); Hemoglobin 12.2 g/dL (12.0-16.0); Lymphocyte % 30.4 %; Mean Corpuscular HGB Conc 33 g/dL (31-36); Mean Corpuscular Hemoglobin 31 pg (27-31); Mean Corpuscular Volume 92 fL (80-97); Mean Platelet Volume 7.6 fL (7.4-10.4); Nucleated Red Blood Cells % 0.1; Platelet Count 245 10^3/uL (150-450); Red Blood Count 3.98 10^6 /uL (3.70-4.87); Red Cell Distribution Width 19 % (10-15); White Blood Count 7.2 10^3/uL (3.5-10.8)
[2019-06-08 19:46] LABS: Albumin 3.8 g/dL (3.2-5.2); Albumin/Globulin Ratio 1.2 (1-3); BUN/Creatinine Ratio 13.6 (8-20); C Reactive Protein 4.05 mg/L (<8.01); Calcium 9.2 mg/dL (8.6-10.3); EGFR African American 93.4 (>60); EGFR Non-African American 77.2 (>60); Globulin 3.2 g/dL (2-4); Potassium 4.3 mmol/L (3.5-5.0); Total Bilirubin 0.3 mg/dL (0.2-1.0)
[2019-06-08] MEDS ORDERED: Docusate CAP* 100 MG PO ONE (20:39)
[2019-06-08 21:02] VITALS: BP 123/77
== END 2019-06-08 21:00 | disposition home or self-care (01) ==
LOC: ED 18:00
DX: R10.30 Lower abdominal pain, unspecified (principal); K59.00 Constipation, unspecified; R11.0 Nausea; Z90.710 Acquired absence of both cervix and uterus; E11.22 Type 2 diabetes mellitus with diabetic chronic kidney disease; I12.9 Hypertensive chronic kidney disease with stage 1 through stage 4 chronic kidney disease, or unspecified chronic kidney disease; N18.9 Chronic kidney disease, unspecified; Z79.4 Long term (current) use of insulin; E03.9 Hypothyroidism, unspecified; J45.909 Unspecified asthma, uncomplicated; G43.909 Migraine, unspecified, not intractable, without status migrainosus; F41.9 Anxiety disorder, unspecified; F32.9 Major depressive disorder, single episode, unspecified; Z98.84 Bariatric surgery status; Z90.49 Acquired absence of other specified parts of digestive tract; Z91.011 Allergy to milk products; Z88.5 Allergy status to narcotic agent; Z88.8 Allergy status to other drugs, medicaments and biological substances; Z91.048 Other nonmedicinal substance allergy status; Z72.0 Tobacco use
CPT/HCPCS: 36415; 74019; 80053; 83605; 85025; 86140; 96372; 99283; A9270-GY; J1885